=== PATIENT | female | born 1960 | race Caucasian/White ===

== ENCOUNTER → 2016-10-21 | Outpatient (CLI) | payer BC ==
--- NOTE | 2016-10-22 08:27 | MM ---
Reason for exam: screening (asymptomatic). Last mammogram was performed 3 years and 11 months ago. History: Patient is postmenopausal. Benign excisional biopsy of the left breast, March 29, 2002. Took estrogen for 6 years 6 months beginning at age 38. Physical Findings: A clinical breast exam by your physician is recommended on an annual basis and results should be correlated with mammographic findings. MG Screening Mammo w CAD Bilateral CC and MLO view(s) were taken. Prior study comparison: November 13, 2012, bilateral digital screening mammo w/CAD. August 16, 2011, bilateral digital screening mammo w/CAD. There are scattered fibroglandular densities. No significant changes when compared with prior studies. ASSESSMENT: Benign, BI-RAD 2 RECOMMENDATION: Routine screening mammogram of both breasts in 1 year.
== END | disposition home or self-care (01) ==
LOC: RADMAMWWP 07:26
PROVIDERS: ATTEND Internal Medicine
DX: Z12.31 Encounter for screening mammogram for malignant neoplasm of breast (principal)

== ENCOUNTER → 2019-12-17 | Outpatient (CLI) | payer BC ==
--- NOTE | 2019-12-17 11:59 | XR ---
EXAMINATION TYPE: XR chest 2V DATE OF EXAM: 12/17/2019 COMPARISON: Prior chest x-ray 02/23/2011 HISTORY: Tobacco use disorder TECHNIQUE: Frontal and lateral views of the chest are obtained. FINDINGS: There is no focal air space opacity, pleural effusion, or pneumothorax seen. The cardiac silhouette size is within normal limits. Prominent lung volumes consistent with underlying COPD. Th e aorta is dense. There is a mild spinal curvature present. Bone mineralization is reduced. The osseo us structures are intact. IMPRESSION: No acute cardiopulmonary process.
== END | disposition home or self-care (01) ==
LOC: RADXRMAIN 08:37
PROVIDERS: ATTEND Internal Medicine
DX: F17.200 Nicotine dependence, unspecified, uncomplicated (principal)
CPT/HCPCS: 71046

== ENCOUNTER → 2019-12-31 | Outpatient (CLI) | payer BC ==
--- NOTE | 2019-12-31 15:56 | US ---
EXAMINATION TYPE: US duplex aorta DATE OF EXAM: 12/31/2019 COMPARISON: NONE CLINICAL HISTORY: R09.89 Abdominal Bruit,R06.02,R05. EXAM MEASUREMENTS: Abdominal Aorta: Proximal: 2.2cm Mid: 2.2cm Distal: 1.4cm Bifurcation: Right: 0.4 Left: 0.5cm Heavily calcified vessel. IMPRESSION: 1. Atheromatous plaquing without aneurysmal dilatation or significant flow-limiting stenosis through the abdominal aorta.
== END | disposition home or self-care (01) ==
LOC: RADUSWWP 09:12
PROVIDERS: ATTEND Internal Medicine
DX: I70.0 Atherosclerosis of aorta (principal)
CPT/HCPCS: 93979

== ENCOUNTER 2020-03-02 10:05 | Day surgery (SDC) | payer BC ==
[2020-02-29 08:38] VITALS: BMI 17.6
[2020-03-02 10:48] VITALS: TEMP 98.3
[2020-03-02] MEDS: LACTATED RINGERS 1,000 ML IV SCH ×2 (10:56→11:23)
[2020-03-02] MEDS ORDERED: LIDOCAINE 1% (10MG/ML) FOR IV START INTRADERMA ONE (10:57)
[2020-03-02] MEDS ORDERED: PROPOFOL 10 MG/ML 20 ML VIAL IV ONE (11:24)
[2020-03-02] MEDS ORDERED: LIDOCAINE 1% INJ 10MG/ML (20 ML MDV) ONE (11:24)
--- NOTE | 2020-03-02 11:42 | P.PCN ---
Date of Procedure: 03/02/20 Procedure(s) Performed: BRIEF HISTORY: Patient is a 59-year-old pleasant white female scheduled for an elective colonoscopy as a part of screening for colon rectal neoplasia. PROCEDURE PERFORMED: Colonoscopy. PREOPERATIVE DIAGNOSIS: Screening for colon cancer. IV sedation per Anesthesia. PROCEDURE: After informed consent was obtained, the patient, was brought into the endoscopy unit. IV sedation was administered by Anesthesia under continuous monitoring. Digital rectal examination was normal. Initially the Olympus CF-160 flexible video colonoscope was then inserted in the rectum, gradually advanced into the cecum without any difficulty. Careful examination was performed as the scope was gradually being withdrawn. Ileocecal valve and the appendiceal orifice were visualized and appeared normal. Prep was excellent. Mucosa of the cecum, ascending colon, transverse colon, descending colon, sigmoid colon, and rectum appeared normal. At her sigmoid diverticulosis. Retroflexion was performed in the rectum and no lesions were seen. The patient tolerated the procedure well. IMPRESSION: Normal-appearing colon from rectum to cecum no evidence of colorectal neoplasia Scattered sigmoid diverticulosis. . RECOMMENDATIONS: Findings of this examination were discussed with the patient as well as her family. She was advised to have a repeat prescription colonoscopy in 10 years.
[2020-03-02 12:02] VITALS: BP 134/85; PULSE 98; RESP 16
== END 2020-03-02 12:30 | disposition home or self-care (01) ==
LOC: ORWHC2ENDO 10:05
PROVIDERS: ATTEND Internal Medicine Gastroenterology
DX: Z12.11 Encounter for screening for malignant neoplasm of colon (principal); K57.30 Diverticulosis of large intestine without perforation or abscess without bleeding; J44.9 Chronic obstructive pulmonary disease, unspecified; F17.200 Nicotine dependence, unspecified, uncomplicated; Z87.442 Personal history of urinary calculi; Z79.899 Other long term (current) drug therapy; Z88.1 Allergy status to other antibiotic agents; Z88.0 Allergy status to penicillin; Z88.2 Allergy status to sulfonamides
CPT/HCPCS: J2001; J2704; G0121

== ENCOUNTER → 2020-12-27 | Outpatient (CLI) | payer BC ==
--- NOTE | 2020-12-27 16:33 | XR ---
Right ankle HISTORY: Pain 3 views of the right ankle Bone mineralization is reduced. Joint spaces and alignment are maintained. Mild soft tissue swelling noted. No fracture or dislocation. IMPRESSION: Osteopenia, soft tissue swelling
== END | disposition home or self-care (01) ==
LOC: RADXRMAIN 12:49
PROVIDERS: ATTEND Internal Medicine
DX: M79.89 Other specified soft tissue disorders (principal)

== ENCOUNTER → 2021-01-17 | Outpatient (CLI) | payer BC ==
--- NOTE | 2021-01-17 17:20 | CTL ---
EXAMINATION TYPE: CT Low Dose Lung DATE OF EXAM ORDERED: 01/17/2021 HISTORY: Personal history tobacco use, Z 87.891. Lung cancer screening CT DLP: 46.[address] CTDI: 1.3 mGy Automated exposure control for dose reduction was used. SCREENING VISIT: 1 COMPARISON: None TECHNIQUE: Low dose computed tomography scan was performed through the chest at 1 mm thick sections a nd reconstructed images in multiple planes at 1 mm and [address] DIAGNOSTIC QUALITY: Satisfactory FINDINGS: LUNG NODULES: None. LUNGS: COPD: Severity: None there is moderate to severe centrilobular emphysema especially in the upper lobe s. Fibrosis: Severity: None Lymph nodes: Other findings: RIGHT PLEURAL SPACE: Effusion: None Calcification: None Thickening: None Pneumothorax: None LEFT PLEURAL SPACE: Effusion: None Calcification: None Thickening: None Pneumothorax: None HEART: Heart Size: Normal Coronary Calcification: Moderate Pericardial Effusion: Normal OTHER FINDINGS: Upper abdomen: Unremarkable Bony thorax: There is thoracic spondylosis Supraclavicular region: Within normal limits Other: Within the tracheal there is some luminal irregularity which may be related to secretions but is indeterminate, axial image 108 for example, proximal right mainstem bronchus axial image 116. Ther e is bronchial wall thickening. IMPRESSION: Negative CT LUNG RAD AND CT CHEST RECOMMENDATION: Lung-Rad 1 Negative: Continue annual screening with LDCT in 12 months. S Modifier (other clinically significant findings):
== END | disposition home or self-care (01) ==
LOC: RADCTMAIN 14:10
PROVIDERS: ATTEND Internal Medicine
DX: Z12.2 Encounter for screening for malignant neoplasm of respiratory organs (principal); Z87.891 Personal history of nicotine dependence
CPT/HCPCS: 71271

== ENCOUNTER → 2021-02-01 | Outpatient (CLI) | payer BC ==
--- NOTE | 2021-02-01 19:29 | BD ---
EXAMINATION TYPE: Axial Bone Density DATE OF EXAM: 02/01/2021 COMPARISON: NONE CLINICAL HISTORY: Postmenopausal screening Height: 63 Weight: 115.3 FRAX RISK QUESTIONS: Alcohol (3 or more units per day): no Family History (Parent hip fracture): no Glucocorticoids (More than 3mos): no (Ex: prednisone, prednisolone, methylprednisolone, dexamethasone, and hydrocortisone). History of Fracture in Adulthood: yes Secondary Osteoporosis: 1. Type 1 Diabetes: no 2. Hyperthyroidism: no 3. Menopause before 45: yes 4. Malnutrition: no 5. Chronic liver disease: no Rheumatoid Arthritis: no Current Tobacco Use: yes RISK FACTORS HISTORY OF: Surgery to Spine/Hip(right/left)/Wrist (right/left): no Family History of Osteoporosis: yes Active: yes Diet low in dairy products/other sources of calcium: yes Postmenopausal woman: yes Lost more than 2 inches in height since high school: no MEDICATIONS: Wellbutrin, singular Additional History: EXAM MEASUREMENTS: Bone mineral densitometry was performed using the [employer] System. Bone mineral density as measured about the Lumbar spine is: ----- L1-L4(G/cm2): 0.750 T Score Values are as follows: ----- L2: -4.1 ----- L3: -3.7 ----- L4: -3.3 ----- L1-L4: -3.6 Bone mineral density : baseline Bone mineral density about the R hip (g/cm2): 0.665 Bone mineral density about the L hip (g/cm2): 0.648 T Score values are as follows: -----R Neck: -2.7 -----L Neck: -2.8 -----R Total: -3.7 -----L Total: -3.5 Bone mineral density : baseline IMPRESSION: Osteoporosis (T Score less than -2.5). There is increased fracture risk and therapy is usually indicated based on age. Re-Screen 1-2 years. NOTE: T-SCORE=SD OF THE YOUNG ADULT MEAN.
== END | disposition home or self-care (01) ==
LOC: RADBDWWP 14:27
PROVIDERS: ATTEND Internal Medicine
DX: M81.0 Age-related osteoporosis without current pathological fracture (principal); Z78.0 Asymptomatic menopausal state
CPT/HCPCS: 77080

== ENCOUNTER → 2021-04-21 | Outpatient (CLI) | payer BC ==
--- NOTE | 2021-04-21 14:36 | MR ---
EXAMINATION TYPE: MR ankle RT wo/w con DATE OF EXAM: 04/21/2021 COMPARISON: None HISTORY: Right ankle pain, swelling, no specific trauma CONTRAST: Standard multiplanar, multisequence MRI departmental protocol images were obtained without contrast a nd with 5.5 mL intravenous Gadavist gadolinium contrast. There is some patchy increased signal on the T2 images in the anterior talus. There is similar mild c hange in the anterior calcaneus. There is minimal edema in the proximal lateral cuboid bone. No fract ure line seen. There is mild edema also in the posterior lateral superior aspect of the calcaneus. The ankle mortise is anatomic. The collateral ligaments are intact. Achilles tendon is intact. Medial and lateral flexor tendons of the ankle appear intact. There is no evidence of soft tissue mass. IMPRESSION: No fracture seen. Multiple areas of bone edema and the hindfoot consistent with multiple bone bruises . This is more noticeable in the anterior talus. No evidence of tendon or ligament tear.
== END | disposition home or self-care (01) ==
LOC: RADMRIMAIN 09:48
PROVIDERS: ATTEND Internal Medicine
DX: M89.8X7 Other specified disorders of bone, ankle and foot (principal)
CPT/HCPCS: 73723; A9585

== ENCOUNTER → 2021-05-01 | Outpatient (CLI) | payer BC ==
--- NOTE | 2021-05-01 15:21 | MM ---
Reason for exam: screening (asymptomatic). Last mammogram was performed 4 years and 6 months ago. History: Patient is postmenopausal. Benign excisional biopsy of the left breast, March 29, 2002. Took estrogen for 6 years 6 months beginning at age 38. Physical Findings: A clinical breast exam by your physician is recommended on an annual basis and results should be correlated with mammographic findings. MG Screening Mammo w CAD Bilateral CC and MLO view(s) were taken. Prior study comparison: October 21, 2016, bilateral MG screening mammo w CAD. November 13, 2012, bilateral digital screening mammo w/CAD. August 16, 2011, bilateral digital screening mammo w/CAD. There are scattered fibroglandular densities. Finding: There is a 7 mm obscured mass located 3 cm from the nipple in the anterior, central position of the right breast. New finding and more defined since November 13, 2012 and August 16, 2011. ASSESSMENT: Incomplete: need additional imaging evaluation, BI-RAD 0 RECOMMENDATION: Special view mammogram of the right breast. If lesion persists on supplemental views, image directed ultrasound is recommended. [facility] will attempt to contact patient to return for supplemental views and ultrasound if indicated.
== END | disposition home or self-care (01) ==
LOC: RADMAMWWP 07:38
PROVIDERS: ATTEND Internal Medicine
DX: Z12.31 Encounter for screening mammogram for malignant neoplasm of breast (principal); Z78.0 Asymptomatic menopausal state
CPT/HCPCS: 77067

== ENCOUNTER → 2021-05-03 | Outpatient (CLI) | payer BC ==
--- NOTE | 2021-05-03 11:14 | MM ---
Reason for exam: additional evaluation requested from abnormal screening. Last mammogram was performed less than 1 month ago. History: Patient is postmenopausal. Benign excisional biopsy of the left breast, March 29, 2002. Took estrogen for 6 years 6 months beginning at age 38. Physical Findings: A clinical breast exam by your physician is recommended on an annual basis and results should be correlated with mammographic findings. MG Work Up Mamm w CAD RT CC and MLO view(s) were taken of the right breast. Prior study comparison: May 01, 2021, bilateral MG screening mammo w CAD. There are scattered fibroglandular densities. Finding: There is an intermediate concern, suspicious 7 mm equal density (isodense), spiculated irregular mass located 3 cm from the nipple in the upper outer quadrant, middle position of the right breast. ASSESSMENT: Incomplete: need additional imaging evaluation, BI-RAD 0 RECOMMENDATION: Ultrasound of the right breast.
--- NOTE | 2021-05-03 11:21 | USB ---
Reason for exam: additional evaluation requested from abnormal screening. History: Patient is postmenopausal. Benign excisional biopsy of the left breast, March 29, 2002. Took estrogen for 6 years 6 months beginning at age 38. Physical Findings: A clinical breast exam by your physician is recommended on an annual basis and results should be correlated with mammographic findings. US Breast Workup Limited RT Right limited breast ultrasound including focal area of concern, retroareolar and axilla demonstrates a 0.7 x 0.5 x 0.5cm hypoechoic, vascular lesion at 10 o'clock, 3cm from nipple and a 1.2cm lymph node at the axilla. ASSESSMENT: Suspicious, BI-RAD 4 RECOMMENDATION: Stereotactic core biopsy of the right breast. Called Dr. Simon's office with mammographic findings and has scheduled an appointment for the patient for 06/04/21 at 11:[address] Rain. Biopsy scheduled for 05/28/21 at 9:30. PRELIMINARY REPORT CALLED AND FAXED TO DR. RAIN ON 05/03/21.
== END | disposition home or self-care (01) ==
LOC: RADMAMWWP 07:17
PROVIDERS: ATTEND Internal Medicine
DX: R92.8 Other abnormal and inconclusive findings on diagnostic imaging of breast (principal); Z78.0 Asymptomatic menopausal state
CPT/HCPCS: 77065

== ENCOUNTER → 2021-05-28 | Day surgery (SDC) | payer BC ==
[2021-05-28 10:06] VITALS: RESP 16; TEMP 98.1
[2021-05-28 11:36] VITALS: BP 151/63; PULSE 84
--- NOTE | 2021-05-28 15:43 | MM ---
Stereotactic Mammotome core biopsy right breast. HISTORY: Right breast density The density in question within the right breast were targeted by the undersigned. Procedure was perf ormed by the undersigned. Informed consent was obtained and all of the patients questions were answer ed. The standard sterile technique was utilized and appropriate local anesthesia was obtained with 1 % lidocaine. Mammotome probe was advanced and multiple core samples were obtained and sent to sherrie galeano for interpretation. Microclip marker was deployed at the site of biopsy. Post procedural mammog lalo demonstrates appropriate deployment of radiopaque clip marker. The patient tolerated the procedu re well and left the department in stable condition. Pathology results are pending. IMPRESSION: Successful stereotactic core biopsy right breast with pathology results pending.
== END ==
LOC: RADMAMWWP 09:44
PROVIDERS: ATTEND Student in an Organized Health Care Education/Training Program
DX: N60.81 Other benign mammary dysplasias of right breast (principal); N64.89 Other specified disorders of breast
CPT/HCPCS: 19081; 88305; 88342; 88341; A4648; J2001

== ENCOUNTER → 2021-12-20 | Outpatient (CLI) | payer BC ==
--- NOTE | 2021-12-20 12:56 | MM ---
Reason for Exam: Follow-up at short interval from prior study. Last screening mammogram was performed 8 month(s) ago. Patient History: Menarche at age 10. First Full-Term at age 21. Left ovary removed at age 38. Right ovary removed at age 38. Hysterectomy at age 38. Postmenopausal. Estrogen for 6 years, 6 months, from age 38 until age 44. 05/28/2021, High risk Core Biopsy on the right side. 03/29/2002, Benign Excisional Biopsy on the left side. Risk Values: Nikki 5 year model risk: 2.3%. NCI Lifetime model risk: 10.0%. Prior Study Comparison: 10/21/2016 Bilateral Screening Mammogram, [facility]. 05/01/2021 Bilateral Screening Mammogram, [facility]. 05/03/2021 Right Diagnostic Mammogram, [facility]. Tissue Density: Right: There are scattered fibroglandular densities. Findings: Analyzed By CAD. No discrete spiculated or lobular masses are evident. The surgical core marker has been removed. Scar marker is utilized on the right breast. Overall Assessment: Benign, BI-RAD 2 Management: Screening Mammogram of both breasts in 6 months. A clinical breast exam by your physician is recommended on an annual basis and results should be correlated with mammographic findings. This exam should not preclude additional follow-up of suspicious palpable abnormalities. Results were given to the patient verbally at the time of exam. Electronically signed and approved by: Robin Olmedo D.O. Radiologis
== END ==
LOC: RADMAMWWP 12:23
PROVIDERS: ATTEND Internal Medicine
DX: R92.8 Other abnormal and inconclusive findings on diagnostic imaging of breast (principal)
CPT/HCPCS: 77061; 77065

== ENCOUNTER → 2022-01-22 | Outpatient (CLI) | payer BC ==
--- NOTE | 2022-01-22 12:24 | CTL ---
EXAMINATION TYPE: CT Low Dose Lung DATE OF EXAM ORDERED: 01/22/2022 HISTORY: . Lung cancer screening CT DLP: 41.[address] CTDI: 1.10 mGy Automated exposure control for dose reduction was used. SCREENING VISIT: COMPARISON: TECHNIQUE: Low dose computed tomography scan was performed through the chest at 1 mm thick sections a nd reconstructed images in multiple planes at 1 mm and [address] DIAGNOSTIC QUALITY: Satisfactory FINDINGS: A pleural-based apical thickening with calcification on the left. There is moderate emphysema in a pa ttern suggestive of centrilobular emphysema. There is a 2 mm nodule on axial image 38 right lung apex and subsegmental changes are seen bilaterall y most typical of scar or atelectasis. No pleural effusion or pneumothorax. No focal pneumonia. Atherosclerotic changes of the aorta with no evidence of aneurysm. Heart size is normal with dense co ronary artery calcification. There is multilevel hypertrophic and degenerative changes spine. IMPRESSION: 1. Diffuse emphysematous changes with a 2 mm benign-appearing right apical lung nodule. 2. Coronary artery calcification. CT LUNG RAD AND CT CHEST RECOMMENDATION: Lung-Rad 2 Benign Appearance or Behavior: Continue annual sc reening with LDCT in 12 months. S Modifier (other clinically significant findings): S
== END | disposition home or self-care (01) ==
LOC: RADCTMAIN 11:17
PROVIDERS: ATTEND Internal Medicine
DX: Z12.2 Encounter for screening for malignant neoplasm of respiratory organs (principal); J43.9 Emphysema, unspecified; R91.1 Solitary pulmonary nodule; I25.10 Atherosclerotic heart disease of native coronary artery without angina pectoris; Z87.891 Personal history of nicotine dependence
CPT/HCPCS: 71271

== ENCOUNTER → 2022-05-01 | Outpatient (CLI) | payer BC ==
--- NOTE | 2022-05-03 07:44 | US ---
EXAMINATION TYPE: US arterial LE multi level DATE OF EXAM: 05/01/2022 12:54 PM CLINICAL HISTORY: I73.9 PAD. Intermittent pain bilateral legs. cold feet. discoloration tips of toes, blueish, purple History of: Smoker: yes Hypertension: no Diabetic: no Hyperlipidemia: yes TIA/CVA: no Previous Vascular Surgery: no CAD: MA: no Vascular Ulcers: no Claudication: no Gangrene: no Doppler Waveforms: Right: Biphasic Left: Biphasic Pulse Volume Recording: Pressure Gradients: Right Brachial Pressure: 140 Left Brachial Pressure: 146 Ankle-Brachial Indices: Right: 0.97 Left: 1.08 Toe Brachial Indices: Right: 0.48 Left: 0.71 IMPRESSION: Diminished right sided TBI consistent with at least mild peripheral arterial disease in the left foot. Further workup and follow-up advised.
== END | disposition home or self-care (01) ==
LOC: RADUSWWP 12:03
PROVIDERS: ATTEND Internal Medicine
DX: I73.9 Peripheral vascular disease, unspecified (principal); E78.5 Hyperlipidemia, unspecified; I25.10 Atherosclerotic heart disease of native coronary artery without angina pectoris; Z87.891 Personal history of nicotine dependence
CPT/HCPCS: 93923

== ENCOUNTER → 2022-09-30 | Outpatient (CLI) | payer BC ==
--- NOTE | 2022-09-30 19:27 | US ---
EXAMINATION TYPE: US carotid duplex BILAT DATE OF EXAM: 09/30/2022 COMPARISON: NONE CLINICAL INDICATION: Female, 62 years old with history of I65.23 CAROTID STENOSIS; Carotid stenosis. Hx smoker, hyperlipidemia. TECHNIQUE: Carotid duplex ultrasound examination. Indirect Doppler criteria was utilized. FINDINGS: EXAM MEASUREMENTS: RIGHT: Peak Systolic Velocity (PSV) cm/sec ----- Right CCA: 75.6 ----- Right ICA: 83.4 ----- Right ECA: 75.4 ICA/CCA ratio: 1.1 RIGHT: End Diastole cm/sec ----- Right CCA: 26.7 ----- Right ICA: 30.2 ----- Right ECA: 25.9 LEFT: Peak Systolic Velocity (PSV) cm/sec ----- Left CCA: 109.5 ----- Left ICA: 97.4 ----- Left ECA: 101.8 ICA/CCA ratio: 0.9 LEFT: End Diastole cm/sec ----- Left CCA: 36.9 ----- Left ICA: 39.1 ----- Left ECA: 16.0 VERTEBRALS (direction of flow): Right Vertebral: Antegrade Left Vertebral: Antegrade Rhythm: Arrhythmia FRUIT SPRAYER NOTES: No elevated velocities at this time. Intimal thickening seen bilaterally. Plaque seen within bilateral bulbs. *Incidental finding: Heterogenous mixed nodule seen within left thyroid lobe at mid: 1.9 x 1.6 x 1.0 cm. IMPRESSION: 1. Less than 50% stenosis of the bilateral carotid bifurcations. 2. Heterogenous left thyroid nodule. Dedicated thyroid ultrasound could further complete evaluation with thyroid gland. Criteria for Assigning % of Stenosis / Diameter reduction (Estimation based on the indirect measurements of the internal carotid artery velocities (ICA PSV). 1. Normal (no stenosis)=ICA PSV < 125 cm/s: ratio < 2.0: ICA EDV<40 cm/s. 2. Less than 50% stenosis=ICA PSV < 125 cm/s: ratio < 2.0: ICA EDV<40 cm/s. 3. 50 to 69% stenosis=ICA PSV of 125 to 230 cm/s: ration 2.0 ? 4.0: ICA EDV 40-100 cm/s. 4. Greater than 70% stenosis to near occlusion= ICA PSV > 230 cm/s: ratio > 4.0: ICA EDV > 100 cm/s. 5. Near occlusion= ICA PSV velocities may be low or undetectable: variable ratio and ICA EDV. 6. Total occlusion=unable to detect flow.
--- NOTE | 2022-09-30 20:22 | CT ---
EXAMINATION TYPE: CT brain wo con DATE OF EXAM: 09/30/2022 COMPARISON: None INDICATION: memory loss DLP: 995.5 mGycm, Automated exposure control for dose reduction was used. CONTRAST: None CT of the brain is performed utilizing 3 mm thick sections through the posterior fossa and 3 mm thick sections through the remaining calvarium. Study is performed within 24 hours of arrival to the hosp ital. No abnormal hyperdensity is present to suggest an acute intracranial hemorrhage. No mass lesion is evident. No acute infarcts are evident. There is mild periventricular white matter hypodensity, likely on the basis of chronic white matter ischemic changes. Ventricles and sulci are appropriate for the patient age. Paranasal sinuses and mastoid air cells within the [id number] are clear. Right septal deviation is noted. IMPRESSIONS: 1. Chronic appearing periventricular white matter ischemic type changes. 2. No acute intracranial process. Follow-up MRI can be performed as clinically indicated
--- NOTE | 2022-10-01 11:54 | CA ---
Transthoracic Echo Report Name: Janet Rodriguez Age: 62 Gender: F : 1960 Exam Date: 09/30/2022 15:51 Exam Location: [facility] Ht (in): 65 Wt (lb): 107 Ordering Physician: Juan Simon MD Attending/Referring Phys: Procedure Manager Marty Salamanca Procedure CPT: Indications: R41.3 OTHER AMNESIA Cardiac Hx: Technical Quality: Fair Contrast 1: Total Dose (mL): Contrast 2: Total Dose (mL): MEASUREMENTS (Male / Female) Normal Values 2D ECHO LV Diastolic Diameter PLAX 3.4 cm 4.2 - 5.9 / 3.9 - 5.3 cm LV Systolic Diameter PLAX 2.2 cm IVS Diastolic Thickness 1.0 cm 0.6 - 1.0 / 0.6 - 0.9 cm LVPW Diastolic Thickness 1.0 cm 0.6 - 1.0 / 0.6 - 0.9 cm LV Relative Wall Thickness 0.6 RV Internal Dim ED PLAX 2.3 cm LVOT Diameter 2.0 cm Aortic Root Diameter 2.5 cm LA Systolic Diameter LX 1.5 cm 3.0 - 4.0 / 2.7 - 3.8 cm LV Diastolic Volume MOD BP 44.1 cm??? 67 - 155 / 56 - 104 cm??? LV Systolic Volume MOD BP 18.5 cm??? 22 - 58 / 19 - 49 cm??? LV Ejection Fraction MOD BP 58.0 % >= 55 % LV Cardiac Index MOD BP 1310.1 cm???/min???m??? LV Diastolic Volume MOD 4C 42.8 cm??? LV Systolic Volume MOD 4C 15.1 cm??? LV Ejection Fraction MOD 4C 64.6 % LV Cardiac Index MOD 4C 1416.2 cm???/min???m??? LV Diastolic Length 4C 6.0 cm LV Systolic Length 4C 4.6 cm LV Diastolic Volume MOD 2C 44.7 cm??? LV Systolic Volume MOD 2C 21.0 cm??? LV Ejection Fraction MOD 2C 53.1 % LV Cardiac Index MOD 2C 1217.1 cm???/min???m??? LV Diastolic Length 2C 5.8 cm LV Systolic Length 2C 5.1 cm LA Volume 14.6 cm??? 18 - 58 / 22 - 52 cm??? DOPPLER AV Peak Velocity 115.3 cm/s AV Peak Gradient 5.3 mmHg LVOT Peak Velocity 76.2 cm/s LVOT Peak Gradient 2.3 mmHg AV Area Cont Eq pk 2.0 cm??? MV Peak Velocity 78.0 cm/s MV Peak Gradient 2.4 mmHg MV Mean Velocity 44.5 cm/s MV Mean Gradient 0.9 mmHg MV Velocity Time Integral 30.8 cm Mitral E Point Velocity 68.0 cm/s Mitral A Point Velocity 73.4 cm/s Mitral E to A Ratio 0.9 MV Deceleration Time 275.6 ms MV E' Velocity 7.3 cm/s Mitral E to MV E' Ratio 9.4 TR Peak Velocity 134.4 cm/s TR Peak Gradient 7.2 mmHg Right Ventricular Systolic Press 12.2 mmHg FINDINGS Left Ventricle Normal LV size and wall thickness. Left ventricular ejection fraction is estimated at 50-55 %. Right Ventricle Normal right ventricular size. Right Atrium Normal right atrial size. Left Atrium Normal left atrial size. Mitral Valve Structurally normal mitral valve. No mitral regurgitation. Aortic Valve Trileaflet aortic valve. No aortic valve stenosis or regurgitation. Tricuspid Valve Structurally normal tricuspid valve. Trace TR. Pulmonic Valve Structurally normal pulmonic valve. No pulmonic regurgitation. Pericardium Normal pericardium. Aorta Normal size aortic root. CONCLUSIONS Normal LV systolic function Prominent posterior pericardial stripe Previewed by: Dr. Dakota Zamarripa MD (Electronically Signed) Final Date: 01 October 2022 11:53
== END | disposition home or self-care (01) ==
LOC: RADCTMAIN 15:37
PROVIDERS: ATTEND Internal Medicine
DX: I65.23 Occlusion and stenosis of bilateral carotid arteries (principal); R41.3 Other amnesia; I34.0 Nonrheumatic mitral (valve) insufficiency; I67.82 Cerebral ischemia
CPT/HCPCS: 70450; 93306; 93880

== ENCOUNTER → 2023-01-23 | Outpatient (CLI) | payer BC ==
--- NOTE | 2023-01-23 08:58 | CTL ---
EXAMINATION TYPE: CT Low Dose Lung DATE OF EXAM ORDERED: 01/23/2023 HISTORY: . Lung cancer screening CT DLP: [address] CTDI: 1.64 mGy Automated exposure control for dose reduction was used. SCREENING VISIT: COMPARISON: 01/22/2022 TECHNIQUE: Low dose computed tomography scan was performed through the chest at 1 mm thick sections a nd reconstructed images in multiple planes at 1 mm and [address] DIAGNOSTIC QUALITY: Satisfactory FINDINGS: There is a new solid-appearing mass within the left lower lobe superior segment not seen on prior exa m measuring 2 x 1.5 cm. Diffuse emphysematous changes are seen. There is an area of subsegmental consolidation seen in the anterior segment of the left upper lobe wh ich could be postinflammatory or sequela of prior infection. 2 mm apical lung nodule stable and has a benign appearance. There is bilateral biapical pleural thickening and nodularity. Pleural-based thic kening noted right upper lobe and bilateral lung apex. Atherosclerotic change aorta. There is dense c oronary artery calcification. Heart size is normal and there is a trace of pericardial fluid. Small h iatal hernia. The calcification within the liver are likely related to granuloma. Noncontrast technique limits assessment for adenopathy. Grossly no pathologic adenopathy identified. Diffuse osteopenia with multilevel degenerative disc disease. IMPRESSION: 1. There is interval development of a new 2 x 1.5 cm left lower lobe superior segment mass. Recommend PET CT scan. 2. Diffuse emphysematous changes 3. Tiny micronodule right upper lobe previously noted stable. 4. Subsegmental consolidation anterior segment left upper lobe likely sequela of prior infection or i nflammatory changes. 5. Dense coronary artery calcification. CT LUNG RAD AND CT CHEST RECOMMENDATION: Lung-Rad 4B or 4X Very Suspicious: Follow-up Chest CT with o r without contrast or PET/CT and/or tissue sampling. PET/CT may be used when there is a > 8 mm solid component. A Morrill level critical message alert has been initiated for Juan Simon MD via the [employer] Critical Results System on 01/23/2023 8:53 AM. This message alert has been sent to Juan Simon MD vi a the preferences provided by the clinician for the receipt of Radiology Critical Findings. Message I D [id number].
== END | disposition home or self-care (01) ==
LOC: RADCTMAIN 07:58
PROVIDERS: ATTEND Internal Medicine
DX: Z12.2 Encounter for screening for malignant neoplasm of respiratory organs (principal); J43.9 Emphysema, unspecified; I25.10 Atherosclerotic heart disease of native coronary artery without angina pectoris; R91.8 Other nonspecific abnormal finding of lung field; F17.210 Nicotine dependence, cigarettes, uncomplicated
CPT/HCPCS: 71271

== ENCOUNTER → 2023-01-31 | Outpatient (CLI) | payer BC ==
--- NOTE | 2023-02-01 08:36 | PE ---
EXAMINATION TYPE: PET CT fusion skull to thigh DATE OF EXAM: 01/31/2023 CLINICAL INDICATION:Female, 62 years old with history of R91.8 Lung mass; TECHNIQUE: Following the intravenous administration of 12.65 mCi of F-18 FDG, whole body images are performed from the skull base to the midthigh. Images are reviewed on the computer in the coronal, axial, and sagittal planes. Reconstructed rotating images are created on independent workstation and reviewed on the computer. A non-contrast CT is performed in conjunction with the PET scan. Glucose level 92 mg/dL CT DLP: 156 mGycm, Automated exposure control for dose reduction was used. COMPARISON: CT 01/23/2023, PET/CT None, FINDINGS: Mediastinal SUV mean is 1.74. Hepatic parenchyma SUV mean is 2.2. SKULL BASE AND NECK: No suspicious radiotracer activity. CHEST, MEDIASTINUM, AND HILAR REGION: Abnormal FDG activity, examples include: * Subcarinal lymph node max SUV 7.9 measuring 8 mm in short axis. * Anterior left upper lung airspace opacities max SUV 4.6. * Left lower lung mass max SUV 10.6 measuring 25 x 18 mm. * Left perihilar lymph node max SUV 11.3. * Low levels FDG activity within a right low paratracheal lymph node and left low paratracheal lymph node also present max SUV 3.2 and 3.5 respectively. ABDOMEN AND PELVIS: No suspicious radiotracer activity. MUSCULOSKELETAL STRUCTURES: No suspicious radiotracer activity. OTHER CT: Atherosclerosis of the coronary arteries and arterial vasculature. Nonobstructing right 8 m m calculus. Scattered IMPRESSION: 1. 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 2. Patchy uptake in the anterior aspect of the left lung could represent infectious process. Attenti on on follow-up imaging.
== END | disposition home or self-care (01) ==
LOC: RADPETMAIN 09:50
PROVIDERS: ATTEND Internal Medicine
DX: C78.1 Secondary malignant neoplasm of mediastinum (principal); C34.32 Malignant neoplasm of lower lobe, left bronchus or lung; R91.8 Other nonspecific abnormal finding of lung field
CPT/HCPCS: 78815; A9552

== ENCOUNTER 2023-02-20 12:32 | Day surgery (SDC) | payer BC ==
[2023-02-12 14:31] VITALS: BMI 17.6
[~2023-02-20 12:32] MED LIST: DEXAMETHASONE SOD PHOSPHATE 4 MG/ML 1 ML VIAL IV ONE; HYDROmorphone 0.5 MG/0.5 ML SYRINGE IVP PRN; LACTATED RINGERS 1,000 ML IV SCH; LIDOCAINE 1% (10MG/ML) FOR IV START INTRADERMA PRN; MIDAZOLAM 2 MG/2 ML VIAL IV PRN; ONDANSETRON 4 MG/2 ML VIAL IVP ONE
[2023-02-20] MEDS ORDERED: fentaNYL (PF) 50 MCG/ML 2 ML AMP ONE (14:34)
[2023-02-20] MEDS ORDERED: SUCCINYLCHOLINE CHLORIDE 200 MG/10 ML VIAL IV ONE (14:34)
[2023-02-20] MEDS ORDERED: SUGAMMADEX SODIUM 200 MG/2 ML SDV IV ONE (14:34)
[2023-02-20] MEDS ORDERED: GLYCOPYRROLATE 0.2 MG/ML 2 ML VIAL ONE (14:34)
[2023-02-20] MEDS ORDERED: NEOSTIGMINE 1 MG/ML 10 ML VIAL ONE (14:34)
[2023-02-20] MEDS ORDERED: ROCURONIUM 10 MG/ML (5 ML VIAL) IV ONE (14:34)
[2023-02-20] MEDS ORDERED: LIDOCAINE 1% INJ 10MG/ML (20 ML MDV) ONE (14:34)
[2023-02-20] MEDS ORDERED: MIDAZOLAM 2 MG/2 ML VIAL ONE (14:34)
[2023-02-20] MEDS ORDERED: PROPOFOL 10 MG/ML 20 ML VIAL IV ONE (14:34)
--- NOTE | 2023-02-20 15:53 | P.PCN ---
Date of Procedure: 02/20/23 Operative Findings: Date of Procedure: 02/20/23 Description of Procedure: Preoperative Diagnosis: Left lower lobe lung mass, 2.5 cm Right upper lobe inflammatory opacity Mediastinal lymphadenopathy involving the left hilum and subcarinal area. Postoperative Diagnosis: same Procedure(s) Performed: Flexible bronchoscopy Robotic-assisted bronchoscopy and addition to radial ultrasound evaluation of the left lower lobe mass and right upper lobe inflammatory opacity Robotic-assisted transbronchial needle aspirate, transbronchial biopsies of the left lower lobe mass in addition to a bronchioloalveolar lavage Robotic-assisted transbronchial biopsies of the right upper lobe inflammatory opacity in addition to a bronchioloalveolar lavage Endobronchial ultrasound Transbronchial needle aspirate of subcarinal station 7 and station 10 L lymph node, Ebus guided Anesthesia: FARIDAA Surgeon: Sabas Torres Estimated Blood Loss (ml): 0 Pathology: other Condition: stable Disposition: same day Operative Findings: A physical exam was performed. Informed consent was obtained from the patient after explaining all the risks (pneumothorax, life threatening bleeding, infection and adverse effects due to medications), benefits and alternatives to the procedure which the patient appeared to understand and so stated. The patient was connected to the monitoring devices. General anesthesia was induced and the patient was intubated by anesthesia. A final timeout was performed and the procedure confirmed by the attending staff bronchoscopist. The bronchoscope was inserted and the airway examined. The flexible bronchoscope was removed and the robotic bronchoscope was inserted. Registration was completed. I next guided the robotic bronchoscope using the navigation system into the lateral segment of the left lower lobe. Once in proper position, the bronchoscope was frozen. The radial EBUS probe was placed through the bronchoscope and confirmed abnormal u/s images vs normal lung. A needle was placed through the working channel and under fluoroscopic guidance, we sampled the area thought to have the mass twice. We then used a cloud biopsy pattern with ultrasound confirmation for 2 additional passes with the needle. U/S evaluation was then used to reconfirm location. Forceps were next introduced through working channel and extended the appropriate distance and 3 transbronchial biopsies were performed using fluoroscopic guidance. The u/s probe was then reinserted to confirm location. When confirmed this process was repeated for a total of 8-10 transbronchial biopsies. After reassessment with EBUS, a brush was placed through the extendable working channel for 1 pass with fluoroscopic guidance. U/S evaluation was then used to confirm location. 40ml of saline was then instilled into the area of the lesion. The robotic bronchoscope was removed and the airway inspected with a flexible bronchoscope and 10 ml of effluent from the BAL was collected. The aspirate was bloody and ultimately declotted and based on that, the sample was discarded. I next guided the robotic bronchoscope using the navigation system into the right upper lobe anterior segment . Once in proper position, the bronchoscope was frozen. The radial EBUS probe was placed through the bronchoscope and confirmed abnormal u/s images vs normal lung.he had ultrasound signal was not adequate. We then used a cloud biopsy of the right upper lobe inflammatory opacity was done. A total of 6 biopsies were taken. Following that, I performed endobronchial brushing and a bronchial lavage of the right upper lobe anterior segment. Subsequently, the catheter guide was removed and the patient was disconnected from the robot. Endobronchial ultrasound was inserted for mediastinal lymph nod es evaluation. A complete examination of the mediastinal lymph nodes revealed a 2 cm subcarinal lymph node and 1.5 cm left hilar lymph node.. Using a 22-gauge needle, transbronchial needle aspirate of the subcarinal lymph node was done and a total of 5 passes were taken and transbronchial needle aspirate of the left hilar lymph node was done with a total of 4 passes. The endobronchial ultrasoun d was removed and the procedure was terminated. Flex. bronchoscope was inserted and regular suctioning was done. At the completion of the procedure, no residual secretions or bloody material within the airway. The bronchoscope was removed. The patient was extubated. FINDINGS: 1.The airways appeared normal 2 Successful navigation, ultrasonographic identification, and biopsies of the left lower lobe mass 3.The the radial ultrasound view was eccentric/concentric 4. endobronchial ultrasound with transbronchial needle aspirate of subcarinal lymph node and station [address] is equal RECOMMENDATIONS: Await pathology and cytology results The referring physician will be alerted to the results when available. The patient was advised to follow up with the referring physician with the biopsy results Patient will be called with results.
[2023-02-20] MEDS ORDERED: ALBUTEROL NEBULIZED 2.5 MG/3 ML INHALATION ONE (16:36)
[2023-02-20 16:37] VITALS: TEMP 97
[2023-02-20] MEDS ORDERED: methylPREDNISolone SOD SUCCI 125 MG/2 ML VIAL IVP ONE (16:37)
--- NOTE | 2023-02-20 17:21 | XR ---
EXAMINATION TYPE: XR chest 1V DATE OF EXAM: 02/20/2023 COMPARISON: 12/17/2019 HISTORY: 62-year-old female postbronchoscopy TECHNIQUE: Single frontal view of the chest is obtained. FINDINGS: Heart normal size. The scarring arch calcifications. Bilateral nipple shadows. Some strand y mild patchy density at the left infrahilar region but otherwise no consolidation, pneumothorax, or pleural effusion. Hyperinflation. IMPRESSION: COPD. Some mild patchy left infrahilar density probably post bronchoscopy/biopsy changes . No pneumothorax or other acute process otherwise seen.
[2023-02-20 17:53] VITALS: RESP 18
--- NOTE | 2023-02-20 17:58 | CT ---
EXAMINATION TYPE: CT chest wo con CT DLP: 195.90 mGycm, Automated exposure control for dose reduction was used. DATE OF EXAM: 02/20/2023 12:59 PM COMPARISON: PET/CT dated 01/31/2023 CLINICAL INDICATION:Female, 62 years old with history of ION BRONCH; PHH, pre procedure ion bronch. TECHNIQUE: CT chest performed without contrast per ion bronch protocol. Multiple axial images were ob tained through the chest. Sagittal and coronal reformats were created for review. Contrast used: mL of (None if empty) Oral contrast used: (None if empty) FINDINGS: Examination limited by lack of IV contrast. LUNGS/ PLEURA: Severe pulmonary emphysema with an upper lobe predominance, centrilobular type. There is associated diffuse interstitial thickening/scarring. Biapical pleural/parenchyma scarring. Subsegm ental atelectatic changes are seen in the lingula. There is volume loss in the right middle lobe with patchy and linear opacities throughout most of this lobe as well as more consolidative opacities ant eriorly and inferiorly. In the anteromedial left upper lobe there are multiple tree-in-bud opacities suggesting infectious or inflammatory small airways process; these areas were warm on PET. There are a few tree-in-bud opacities in the left lung base as well. Large solid nodule in the left lower lobe image 191 series 6 measures 2.3 x 2.2 cm (was hot on PET). From this there is a fingerlike projection of soft tissue extending medially and superiorly to the le ft hilum where there is soft tissue density that is difficult to measure precisely especially without contrast but is judged to be about 14 mm in short axis (and this was hot on PET), compatible with hi lar otto metastasis. No other discrete measurable lung nodules or masses at this time. No pleural effusion, or pneumothora x. AIRWAY: There is a small amount of material seen layering in the distal trachea and mainstem bronchi posteriorly likely mucous secretions. Mild peribronchial thickening bilaterally can be seen with bron chitis, chronic or acute. Small amount of mucus plugging suggested in some of the left lower lobe bro nchi. One small bronchial branch leads directly to the left lower lobe nodule, and should be amenable to bronchoscopic access. LOWER NECK: No significant findings. MEDIASTINUM: Subcarinal adenopathy which was hot on PET seems to be larger now with a short axis salty uring 19.5 mm. There are multiple additional mediastinal nodes seen, including right precarinal with a short axis 7 mm, multiple nonenlarged AP window nodes with the largest having a short axis 7 mm. Co ntinuing superiorly, there are numerous subcentimeter nodes seen, which are more conspicuous in numbe r than size. These reach near the level of the thyroid. No distinct periclavicular nodes can be seen. HEART: Normal heart size. Moderate to severe coronary artery calcification and/or stents. Trace peric ardial fluid VASCULATURE: Moderate atherosclerotic calcifications of the aorta and branches. Ascending aorta is 2 .8 CM, descending is 2.3 CM. Aorta is considered within normal limits for size. Pulmonary trunk measures 1.8 CM. Pulmonary trunk is normal in size. Vessels otherwise not further ass essed without contrast. SOFT TISSUES/LYMPH NODES: Unremarkable chest wall soft tissues. No axillary adenopathy. UPPER ABDOMEN: Additional aortic calcifications. No mass of the visualized adrenals. MUSCULOSKELETAL: No acute osseous abnormalities. Generalized osteopenia. Mild degenerative disc galindo es throughout the visualized spine. IMPRESSION: 1. Severe pulmonary emphysema. 2. Large solid left lower lobe pulmonary nodule, compatible with malignancy. 3. Soft tissue extension from this nodule to the left hilum with left hilar metastatic adenopathy. 4. Apparent interval enlargement of subcarinal adenopathy, presumed metastatic. 5. Multiple additional prominent but not enlarged lymph nodes in the mediastinum, of uncertain metas tatic status but were not hot on the recent PET/CT. These will be reassessed on subsequent follow-up imaging. 6. Tree-in-bud opacities in the anterior left lung, likely related to infectious/inflammatory proces s. 7. Opacities in the right middle lobe with evidence of some volume loss, may represent atelectasis w ith possible superimposed infectious infiltrate.
[2023-02-20 18:18] VITALS: BP 115/75; PULSE 94
--- NOTE | 2023-02-20 20:14 | FL ---
EXAMINATION TYPE: FL bronchoscopy DATE OF EXAM: 02/20/2023 FLUOROSCOPY Fluoroscopy time of 1 minute 8 seconds was used during left bronchoscopy. 5 image/s document/s the p rocedure. 1.1787 mGycm2 DAP
== END 2023-02-20 18:17 | disposition home or self-care (01) ==
LOC: ORWHC2ENDO 12:32
PROVIDERS: ATTEND Internal Medicine Critical Care Medicine
DX: C34.32 Malignant neoplasm of lower lobe, left bronchus or lung (principal); Z88.0 Allergy status to penicillin; Z88.2 Allergy status to sulfonamides; Z88.3 Allergy status to other anti-infective agents; Z79.82 Long term (current) use of aspirin; Z79.899 Other long term (current) drug therapy; Z83.6 Family history of other diseases of the respiratory system; F17.200 Nicotine dependence, unspecified, uncomplicated; J44.9 Chronic obstructive pulmonary disease, unspecified; I10 Essential (primary) hypertension; E78.5 Hyperlipidemia, unspecified; F41.9 Anxiety disorder, unspecified
CPT/HCPCS: 88108; 88305; 88342; 88341; 71045; 71250; 31628; 31629; 31623; 31624; 31652; J2250; J0330; J1100; J2710; J2930; J2405; J2001; J3010; J2704; S2900

== ENCOUNTER → 2023-03-03 | Outpatient (CLI) | payer BC ==
--- NOTE | 2023-03-04 09:27 | MR ---
EXAMINATION TYPE: MR brain wo/w con DATE OF EXAM: 03/03/2023 4:31 PM CLINICAL INDICATION:Female, 62 years old with history of C34.92 NEOPLASM OF UNSP PART OF LEFT BRONCHU S; PHH, Lung cancer COMPARISON: None TECHNIQUE: Multi planar, multi sequence imaging was performed through the brain including: T1, T2, In version recovery, susceptibility weighted imaging and gradient echo imaging and Diffusion weighted im aging. The patient was then given intravenous contrast and multi planar, T1 fat-saturation images wer e obtained. IV Contrast: 4.5 cc Gadavist FINDINGS: The javier-white junctions, ventricular system, basal cisterns appear unremarkable. Diffusion-weighted imaging shows no evidence of restricted diffusion to suggest acute/subacute infarct. Intracranial ar terial flow voids are maintained. Midline structures show no abnormality. Scattered foci of high T2 s ignal intensity are seen within the periventricular white matter. The susceptibility weighted images do not reveal any evidence for micro-hemorrhage. After administration of gadolinium, no abnormal enha ncement is seen. The bone marrow signal is within normal limits. Paranasal sinuses and mastoid air cells: No significant paranasal sinus disease. Visualized orbits: Orbital contents are intact. IMPRESSION: 1. No evidence of intracranial mass, acute/subacute infarct, or abnormal enhancement. 2. Nonspecific white matter changes, likely related to small vessel ischemic disease.
== END | disposition home or self-care (01) ==
LOC: RADMRIMAIN 15:23
PROVIDERS: ATTEND Internal Medicine Hematology & Oncology
DX: C34.92 Malignant neoplasm of unspecified part of left bronchus or lung (principal)
CPT/HCPCS: 70553; A9585

== ENCOUNTER → 2023-05-01 | Outpatient (CLI) | payer BC ==
[2023-05-01 12:31] LABS: Amorphous Sediment,Urine Rare /hpf; Appearance,Urine Clear (Clear); Bilirubin,Urine Negative (Negative); Blood,Urine Moderate (Negative); Color,Urine Colorless; Glucose,Urine (UA) Negative (Negative); Ketones,Urine Negative (Negative); Leukocyte Esterase,Urine Trace (Negative); Nitrite,Urine Negative (Negative); PH, Urine 6.5 (5.0-8.0); Protein,Urine Negative (Negative); RBC,Urine 27 /hpf (0-5); Specific Gravity,Urine 1.014 (1.001-1.035); Urobilinogen,Urine <2.0 mg/dL (<2.0); WBC,Urine 13 /hpf (0-5)
== END | disposition home or self-care (01) ==
LOC: LABWHC1 09:44
PROVIDERS: ATTEND Radiology Radiation Oncology
DX: C34.32 Malignant neoplasm of lower lobe, left bronchus or lung (principal); C77.1 Secondary and unspecified malignant neoplasm of intrathoracic lymph nodes
CPT/HCPCS: 81001; 87086

== ENCOUNTER → 2023-05-30 | Outpatient (CLI) | payer BC ==
[2023-05-30 09:27] LABS: African American GFR (CKD) 79 (>60 ml/min/1.73 sqM); Blood Urea Nitrogen 39 mg/dL (7-17); Non-African American GFR(CKD) 69 (>60 ml/min/1.73 sqM)
--- NOTE | 2023-05-30 11:49 | CT ---
EXAMINATION TYPE: CT ChestAbdPelvis w con DATE OF EXAM: 05/30/2023 COMPARISON: 01/31/2023 and 01/22/2022 HISTORY: 63-year-old female C34.92, Hx lung ca, observe for mets TECHNIQUE: Contiguous axial scanning of the chest, abdomen, and pelvis performed with IV Contrast, patient injected with 100 mL of Isovue 300. Delayed images through the kidneys were obtained. Espinoza l/sagittal reconstructions performed. CT DLP: 782 mGycm Automated exposure control for dose reduction was used. FINDINGS: CHEST: The heart is normal size without pericardial effusion. Scattered three-vessel coronary calcifications are present. Aorta normal caliber with aberrant right subclavian artery taking a retroesophageal course. Nonspecific 8 mm hypodense left thyroid lobe nodule. There is some layering debris within the lower trachea and kirti and moderate bronchial wall thicken ing and some endoluminal opacification left lower lobe. Decreasing size of the previous nonenlarged subcarinal lymph node. Resolution of the previous left hi lar adenopathy and previous left lower lobe nodule. Background moderate to advanced upper lung emphysema. Biapical pleural parenchymal scarring. Anterior midlung tree-in-bud opacities on the left have resolved. Minimal groundglass nodularity in t he periphery of the left base is now present. ABDOMEN: No focal liver lesion or biliary ductal dilatation. Portal venous system is patent. Gallbladder, adrenal glands, spleen, left kidney within normal limits. 7 mm nonobstructive right parul l calculus. Moderate atherosclerotic calcifications throughout the abdominal aorta and iliac arteries. No dilated small bowel, free fluid, or free air. No mesenteric or retroperitoneal lymphadenopathy see n. There is moderate to large stool burden with oral contrast progressed to the ascending colon. Sigmoid diverticulosis. No pericolic inflammatory change. PELVIS: Bladder urine distended. Uterus surgically absent. Ovaries not clearly delineated due to crowded efraín l. No abnormal fluid collection in the pelvis or pelvic lymphadenopathy. BONES: Unchanged sclerotic focus left pubic body likely bone island. Mild degenerative change of the hips. T here is osteopenia. IMPRESSION: 1. PREVIOUS LEFT LOWER LOBE NODULE HAS RESOLVED HAS THE PREVIOUS LEFT HILAR ADENOPATHY. THERE IS M ODERATE BRONCHIAL WALL THICKENING AND SOME ENDOBRONCHIAL OPACIFICATION IN THE LEFT LOWER LOBE. FINDIN GS SUGGEST SATISFACTORY TREATMENT RESPONSE AND SOME POSSIBLE POSTTREATMENT INFLAMMATION/BRONCHITIS. 2. PREVIOUS TREE-IN-BUD ANTERIOR LEFT MIDLUNG HAS RESOLVED BUT WITH SOME SUBTLE NEW INFECTIOUS/INFLAM MATORY GROUNDGLASS INFILTRATE AT THE LEFT BASE. GIVEN LAYERING DEBRIS IN THE LOWER TRACHEA, CORRELATE TO EXCLUDE MILD ASPIRATION. 3. NONOBSTRUCTIVE 7 MM RIGHT RENAL STONE AND MODERATE TO LARGE STOOL BURDEN. SIGMOID DIVERTICULOSIS W ITHOUT ACUTE DIVERTICULITIS.
== END | disposition home or self-care (01) ==
LOC: RADCTMAIN 08:38
PROVIDERS: ATTEND Internal Medicine Hematology & Oncology
DX: C34.92 Malignant neoplasm of unspecified part of left bronchus or lung (principal); N20.0 Calculus of kidney; E78.5 Hyperlipidemia, unspecified; J43.8 Other emphysema; J44.9 Chronic obstructive pulmonary disease, unspecified
CPT/HCPCS: 82565; 84520; 71260; 74177; 36415; Q9967

== ENCOUNTER → 2023-06-06 | Outpatient (CLI) | payer BC ==
--- NOTE | 2023-06-09 12:57 | MR ---
EXAMINATION TYPE: MR brain wo/w con DATE OF EXAM: 06/06/2023 COMPARISON: Prior MRI brain March 03, 2023 HISTORY: Lung cancer TECHNIQUE: Multiplanar, multisequence images of the brain and brainstem is performed without and with IV contras t, utilizing 4 mL intravenous Gadavist . FINDINGS: Diffusion weighted images demonstrate no evidence of a recent infarct or other diffusion ab normality. The ventricular system and cisternal spaces are normal in size and appearance. The brain volume is age appropriate. There is redemonstration of multifocal and confluent areas of T2 hyperinte nsity seen throughout the white matter bilaterally. Lesions are nonspecific in appearance and distrib ution. Midline structures redemonstrates somewhat empty sella morphology. The craniocervical junction appea rs within normal limits. Post contrast images demonstrate no abnormal enhancement. The dural venous sinuses appear patent. The globes are intact bilaterally. There is new fluid in the bilateral maxillary sinuses and right greater than left ethmoid sinuses zac ng with the central frontal sinus with mucosal enhancement throughout the paranasal sinuses noted andrew aterally. IMPRESSION: 1. No new suspicious enhancing masses identified to suggest metastatic disease to the brain. 2. Moderate nonspecific white matter changes redemonstrated favor product of chronic small vessel isc hemic change. No significant change from prior. 3. There is new acute paranasal sinus disease present as detailed above. Correlate clinically.
== END | disposition home or self-care (01) ==
LOC: RADMRIMAIN 13:50
PROVIDERS: ATTEND Radiology Radiation Oncology
DX: C34.90 Malignant neoplasm of unspecified part of unspecified bronchus or lung (principal); I67.82 Cerebral ischemia
CPT/HCPCS: 70553; A9585

== ENCOUNTER → 2023-08-02 | Outpatient (CLI) | payer BC ==
--- NOTE | 2023-08-02 14:46 | MR ---
EXAMINATION TYPE: MR brain wo/w con DATE OF EXAM: 08/02/2023 2:40 PM COMPARISON: 06/06/2023 HISTORY: Post Cancer treatment f/u, dizziness, headaches, nausea CONTRAST: Patient received 4.5 mL intravenous Gadavist gadolinium contrast. Multiplanar and multispin-echo imaging of the brain was performed . Pre and post contrast enhanced i mages are obtained. The ventricles, basal cisterns and sulci overlying the cerebral convexities are mildly enlarged. There is evidence of mild to moderate periventricular white matter ischemic demyelination. Remote deep white matter insults are also noted. No acute edema is seen on diffusion weighted imaging. There is no evidence for midline shift or mass effect. Acute intracranial hemorrhage or extra-axial collection is not evident. No enhancing lesions are seen. The paranasal sinuses and mastoid air cells are well-aerated. IMPRESSION: Age-related atrophic and chronic small vessel ischemic change. No acute intracranial process at this time. No enhancing lesions are seen.
== END | disposition home or self-care (01) ==
LOC: RADMRIMAIN 13:39
PROVIDERS: ATTEND Internal Medicine Hematology & Oncology
DX: C34.32 Malignant neoplasm of lower lobe, left bronchus or lung (principal); C77.1 Secondary and unspecified malignant neoplasm of intrathoracic lymph nodes; I67.82 Cerebral ischemia
CPT/HCPCS: 70553; A9585

== ENCOUNTER → 2023-08-27 | Outpatient (CLI) | payer BC ==
--- NOTE | 2023-08-27 12:34 | CT ---
EXAMINATION TYPE: CT ChestAbdPelvis w con CT DLP: 411.2 mGycm, Automated exposure control for dose reduction was used. DATE OF EXAM: 08/27/2023 11:58 AM COMPARISON: CT chest abdomen and pelvis 05/30/2023, CT chest 05/22/2023, PET CT 01/31/2023. 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 Technique: Multiple axial images of the chest, abdomen, and pelvis were obtained following the intrav enous administration of 100 mL Isovue-300. Oral contrast was administered. Two-dimensional coronal an d sagittal reconstructions were obtained. Findings: CHEST: LUNGS/ PLEURA: Moderate to advanced centrilobular emphysematous changes. Biapical pleural-parenchymal scarring. Resolution. Resolution of ground glass nodularity in the periphery of the left base. No ne w suspicious pulmonary nodules or masses. AIRWAY: Patent and unremarkable.. HEART: Size within normal limits. No pericardial effusion. Scattered 3 vessel coronary arterial calci fications. MEDIASTINUM: No pathologically enlarged lymph nodes greater than 1 cm short axis. VASCULATURE: No aortic aneurysm. Aberrant right subclavian artery taking a retropharyngeal course re demonstrated. MUSCULOSKELETAL: No acute osseous abnormalities. No aggressive osseous lesion. SOFT TISSUES/LYMPH NODES: Unremarkable. LOWER NECK: Stable hypodense 8 mm nodule within the left thyroid lobe. ABDOMEN: ABDOMEN LIVER: Unremarkable GALLBLADDER AND BILE DUCTS: Unremarkable. PANCREAS: Unremarkable. SPLEEN: Unremarkable. ADRENAL GLANDS: Unremarkable. KIDNEYS AND URETERS: No evidence of hydronephrosis. No left renal calculi. Nonobstructive right infer ior pole 6 mm calculus. Kidneys enhance symmetrically. Contrast is demonstrated within both collectin g systems on the delayed phase. PELVIS BLADDER: Distended urinary bladder. REPRODUCTIVE: Uterus is surgically absent. ABDOMEN & PELVIS STOMACH AND BOWEL: Stomach and duodenum are unremarkable. Moderate colonic stool burden. Enteric cont rast reaches the transverse colon. No focal wall thickening. Sigmoid diverticulosis. No evidence of b owel obstruction. PERITONEUM: No evidence of pneumoperitoneum or free fluid. VASCULATURE: Moderate atherosclerotic calcifications are present throughout the abdominal aorta and i ts branches. No abdominal aortic aneurysm. MUSCULOSKELETAL: No acute osseous abnormalities. No aggressive osseous lesion. Stable sclerotic focus within the left pubic body likely representing a benign bone island. LYMPH NODES: No gross evidence for lymphadenopathy. SOFT TISSUE/ABDOMINAL WALL: Unremarkable IMPRESSION: 1. Resolution of previously demonstrated adenopathy and left lower lobe pulmonary nodularity. No new suspicious pulmonary nodularity or adenopathy to suggest active recurrence. 2. Nonobstructive right renal calculus redemonstrated. 3. Moderate colonic stool burden with sigmoid diverticulosis.
== END | disposition home or self-care (01) ==
LOC: RADCTMAIN 09:11
PROVIDERS: ATTEND Internal Medicine Hematology & Oncology
DX: C34.92 Malignant neoplasm of unspecified part of left bronchus or lung (principal); J43.8 Other emphysema; J44.9 Chronic obstructive pulmonary disease, unspecified; N20.0 Calculus of kidney; K57.30 Diverticulosis of large intestine without perforation or abscess without bleeding; R11.2 Nausea with vomiting, unspecified
CPT/HCPCS: 71260; 74177; Q9967

== ENCOUNTER → 2023-11-03 | Outpatient (CLI) | payer BC ==
--- NOTE | 2023-11-03 11:26 | MR ---
EXAMINATION TYPE: MR brain wo/w con DATE OF EXAM: 11/03/2023 COMPARISON: 08/02/2023 HISTORY: Dizziness, hx of cancer TECHNIQUE: Multiplanar, multisequence images of the brain and brainstem is performed without and with IV contras t, utilizing 4 mL intravenous Gadavist . FINDINGS: Diffusion weighted images demonstrate no evidence of a recent infarct or other diffusion ab normality. There is a 1.1 x 1.1 cm enhancing mass within the left cerebellum with mild mass effect upon the left cerebellar peduncle of the pontomedullary junction. Changes of chronic sinusitis. Areas of abnormal signal within the white matter and ashwini compatible wi th remote microvascular ischemic disease. There is no evidence of midline shift or mass effect. Crani ocervical junction is maintained. Partially empty sella turcica. Mild changes of chronic mastoiditis. IMPRESSION: 1. There is a 1.1 x 1.1 cm new mass within the left cerebellar hemisphere. Correlate for metastases. 2. Degenerative and remote ischemic changes. 3. Chronic sinusitis. A Yellow level critical message alert has been initiated for [facility] Brian Obregon via the [employer] Critical Results System on 11/03/2023 11:15 AM. This message alert has been sent to Alfredo~ALYCE Obregon via the preferences provided by the clinician for the receipt of Radio logy Critical Findings. Message ID [id number]. [facility], , 11/03/2023 11:23 AM
== END | disposition home or self-care (01) ==
LOC: RADMRIMAIN 10:00
PROVIDERS: ATTEND Radiology Radiation Oncology
DX: C77.1 Secondary and unspecified malignant neoplasm of intrathoracic lymph nodes (principal); C34.32 Malignant neoplasm of lower lobe, left bronchus or lung; J32.9 Chronic sinusitis, unspecified; G31.9 Degenerative disease of nervous system, unspecified
CPT/HCPCS: 70553

== ENCOUNTER → 2023-11-05 | Outpatient (CLI) | payer BC ==
[2023-11-05 09:04] LABS: African American GFR (CKD) >90 (>60 ml/min/1.73 sqM); Blood Urea Nitrogen 21 mg/dL (7-17); Non-African American GFR(CKD) >90 (>60 ml/min/1.73 sqM)
--- NOTE | 2023-11-10 13:51 | CT ---
EXAMINATION TYPE: CT ChestAbdPelvis w con DATE OF EXAM: 11/05/2023 INDICATION: Hx lung ca, routine follow up COMPARISON: 08/27/2023 CT DLP: 421.90 mGycm CONTRAST: Performed with Oral Contrast and with IV Contrast, patient injected with 100 mL of Isovue 300. TECHNIQUE: Axial images at 5 mm thick sections. Reconstructed images in the coronal plane. Delayed images through the kidneys. FINDINGS: CT CHEST: Portion of the thyroid visualized is normal. No suspicious lung nodules or focal infiltrates are present. Advanced emphysematous changes are prese nt No enlarged mediastinal or hilar adenopathy is evident. The ascending aorta diameter at the level of the main pulmonary artery is 2.7 cm. The main pulmonary artery diameter at the bifurcation is 2.[address] ABDOMEN: Liver: Normal Spleen: Normal Pancreas: Normal Adrenal glands: The adrenal glands are normal. Gallbladder: Normal Kidneys: No masses are evident. No hydronephrosis is present. No cysts are present. Delayed images were obtained through the kidneys, which remain unremarkable. Nonobstructing renal stone may be on t he right mid anterior kidney. Aorta: Vascular calcification is within the aorta. Inferior vena cava: Normal. CT PELVIS: Loops of bowel within the abdomen and pelvis are normal. There are loops of bowel which are incom pletely distended or lack oral contrast limiting their evaluation. Appendix: Not identified. No dilated tubular structure or inflammatory changes are evident. Urinary bladder: Normal. Genitourinary structures: Uterus and ovaries are not identified. Osseous structures: No suspicious lytic or sclerotic lesions. IMPRESSION: 1. Nonobstructing right renal stone. 2. COPD. 3. No suspicious changes to suggest recurrent or metastatic lung cancer [facility], Workstation: [facility], 11/10/2023 1:49 PM
== END | disposition home or self-care (01) ==
LOC: RADCTMAIN 07:39
PROVIDERS: ATTEND Internal Medicine Hematology & Oncology
DX: C34.92 Malignant neoplasm of unspecified part of left bronchus or lung
CPT/HCPCS: 36415; 71260; 74177; 82565; 84520

== ENCOUNTER → 2023-12-14 | Outpatient (CLI) | payer BC, OTHER ==
--- NOTE | 2023-12-14 10:34 | MR ---
EXAMINATION TYPE: MR brain wo/w con DATE OF EXAM: 12/14/2023 10:22 AM COMPARISON: 11/03/2023. 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 The patient was then given intravenous contrast and multi planar, T1 fat-saturation images wer e obtained. IV Contrast: 5 cc Gadavist FINDINGS: Although reduction in size of left inferior cerebellar peduncle Mantey mass measuring 5 mm previously up to 14 mm on 11/03/2023. The javier-white junctions, ventricular system, basal cisterns appear unrema rkable. Diffusion-weighted imaging shows no evidence of restricted diffusion to suggest acute/subacu te infarct. Intracranial arterial flow voids are maintained. Midline structures show no abnormality. Scattered foci of high T2 signal intensity are seen within the periventricular white matter. The susc eptibility weighted images do not reveal any evidence for micro-hemorrhage. The bone marrow signal is within normal limits. Paranasal sinuses and mastoid air cells: Mucous retention cyst in left maxillary sinus. Visualized orbits: Orbital contents are intact. IMPRESSION: 1. Positive response to therapy with decrease in size of left inferior cerebellar peduncle mass salty uring 5 mm previously 14 mm. No new masses identified. 2. Nonspecific white matter changes, likely related to small vessel ischemic disease. [facility], , 12/14/2023 10:32 AM
== END | disposition home or self-care (01) ==
LOC: RADMRIMAIN 07:35
PROVIDERS: ATTEND Radiology Radiation Oncology
DX: C79.31 Secondary malignant neoplasm of brain (principal); C77.1 Secondary and unspecified malignant neoplasm of intrathoracic lymph nodes; C34.32 Malignant neoplasm of lower lobe, left bronchus or lung; J34.1 Cyst and mucocele of nose and nasal sinus
CPT/HCPCS: 70553; A9585

== ENCOUNTER 2024-01-19 15:01 | Observation (INO) | payer OTHER ==
--- NOTE | 2024-01-19 15:47 | ED ---
Chest Pain HPI - General Chief Complaint: Chest Pain Stated Complaint: chest pain Time Seen by Provider: 01/19/24 15:20 Source: patient, EMS, RN notes reviewed Mode of arrival: EMS Limitations: no limitations - History of Present Illness Initial Comments: This is a 63-year-old female with history of COPD and metastatic lung cancer presenting to the emergency department via EMS for chief complaint of chest pain and shortness of breath. Patient states that approximately at 1300 she began to experience mid chest pain described as a sharp sensation with associated pain in her left mid back. When EMS arrived to the patient's home she was found to be hypoxic with a O2 saturation in the low 80s on room air and patient states that she does not wear supplemental oxygen at home. She states she has been experiencing a worsening productive cough, chills, body aches and congestion. Currently she is denying chest pain, shortness of breath, heart palpitations. - Related Data Home Medications Medication Instructions Recorded Confirmed Montelukast [Singulair] 10 mg PO HS 02/29/20 01/19/24 Atorvastatin [Lipitor] 20 mg PO HS 05/21/21 01/19/24 Levocetirizine Dihydrochloride 5 mg PO HS 05/21/21 01/19/24 Albuterol Inhaler [Ventolin Hfa 2 puff INHALATION RT-Q4H PRN 11/01/22 01/19/24 Inhaler] ALPRAZolam [Xanax] 0.5 mg PO DAILY PRN 01/19/24 01/19/24 Albuterol Nebulized [Ventolin 2.5 mg INHALATION RT-TID PRN 01/19/24 01/19/24 Nebulized] HYDROcodone/APAP 5-325MG [Summit 1 tab PO QID PRN 01/19/24 01/19/24 5-325] Ondansetron Odt [Zofran Odt] 4 mg PO W/SUPPER 01/19/24 01/19/24 Umeclidinium Brm/Vilanterol Tr 1 puff INHALATION RT-DAILY 01/19/24 01/19/24 [Anoro Ellipta 62.5-25 Mcg INH] Allergies Allergy/AdvReac Type Severity Reaction Status Date / Time ciprofloxacin [From Cipro] Allergy Rash/Hives, Verified 01/19/24 16:50 SWELLING erythromycin base Allergy Rash/Hives, Verified 01/19/24 16:50 SWELLING moxifloxacin [From Avelox] Allergy Rash/Hives, Verified 01/19/24 16:50 SWELLING nitrofurantoin Allergy Rash/Hives, Verified 01/19/24 16:50 [From Macrodantin] SWELLING Penicillins Allergy Rash/Hives, Verified 01/19/24 16:50 SWELLING Quinolones Allergy Rash/Hives, Verified 01/19/24 16:50 SWELLING Sulfa (Sulfonamide Allergy Rash/Hives, Verified 01/19/24 16:50 Antibiotics) SWELLING sulfamethoxazole Allergy Rash/Hives, Verified 01/19/24 16:50 [From Bactrim] SWELLING trimethoprim [From Bactrim] Allergy Rash/Hives, Verified 01/19/24 16:50 SWELLING Review of Systems ROS Statement: Those systems with pertinent positive or pertinent negative responses have been documented in the HPI. ROS Other: All systems not noted in ROS Statement are negative. Past Medical History Past Medical History: COPD, Hyperlipidemia Additional Past Medical History / Comment(s): KIDNEY STONES, EMPHYSEMA, RECENT 3 MASSES FOUND IN LT LUNG History of Any Multi-Drug Resistant Organisms: None Reported Past Surgical History: Breast Surgery, Hysterectomy, Tonsillectomy, Tubal Ligation Additional Past Surgical History / Comment(s): LAPAROSCOPIC EXAM, BREAST BIOPSY- LEFT and RIGHT-BENIGN, COLONOSCOPY Past Anesthesia/Blood Transfusion Reactions: No Reported Reaction Past Psychological History: Anxiety Smoking Status: Current every day smoker - Past Family History Brother(s) Family Medical History: Cancer, Deep Vein Thrombosis (DVT) Additional Family Medical History / Comment(s): bladder ca. 2 BROTHERS WITH CANCER General Exam Limitations: no limitations General appearance: alert, in no apparent distress, cachectic Eye exam: Present: normal appearance, PERRL, EOMI. Absent: scleral icterus, conjunctival injection, periorbital swelling ENT exam: Present: normal exam, mucous membranes moist Neck exam: Present: normal inspection. Absent: tenderness, meningismus, lymphadenopathy Respiratory exam: Present: normal lung sounds bilaterally, wheezes, decreased breath sounds. Absent: respiratory distress, rales, rhonchi, stridor Cardiovascular Exam: Present: normal rhythm, tachycardia, normal heart sounds. Absent: systolic murmur, diastolic murmur, rubs, gallop, clicks GI/Abdominal exam: Present: soft, normal bowel sounds. Absent: distended, tenderness, guarding, rebound, rigid Extremities exam: Present: normal inspection, full ROM, normal capillary refill. Absent: tenderness, pedal edema, joint swelling, calf tenderness Back exam: Present: normal inspection Skin exam: Present: warm, dry, intact, normal color. Absent: rash Course Vital Signs 01/19/24 01/19/24 01/19/24 15:11 16:11 16:20 Temperature 98.7 F Pulse Rate 137 H 124 H 124 H Respiratory 20 18 18 Rate Blood Pressure 121/88 O2 Sat by Pulse 83 L Oximetry 01/19/24 17:56 Temperature Pulse Rate 108 H Respiratory 18 Rate Blood Pressure 139/92 O2 Sat by Pulse 92 L Oximetry Chest Pain MDM - MDM Was pt. sent in by a medical professional or institution (, PA, DISC PAD KNOCKOUT WORKER, urgent care, hospital, or skilled nursing...) When possible be specific @ -No Did you speak to anyone other than the patient for history (EMS, parent, family, police, friend...)? What history was obtained from this source @ -No Did you review nursing and triage notes (agree or disagree)? Why? @ -I reviewed and agree with nursing and triage notes Were old charts reviewed (outside hosp., previous admission, EMS record, old EKG, old radiological studies, urgent care reports/EKG's, skilled nursing records)? Report findings @ -No old charts were reviewed Differential Diagnosis (chest pain, altered mental status, abdominal pain women, abdominal pain men, vaginal bleeding, weakness, fever, dyspnea, syncope, headache, dizziness, GI bleed, back pain, seizure, CVA, palpatations, mental health, musculoskeletal)? @ -Differential Chest Pain: Stable Angina, Unstable Angina, STEMI, NSTEMI Aortic Dissection, Pneumothorax, Musculoskeletal, Esophageal Spasm GERD, Cholecystitis, Pancreatitis, Zoster, this is not meant to be an all-inclusive list. EKG interpreted by me (3pts min.). @ -Completed at 129 sinus tachycardia with a PA interval of 109, ventricular rate 129, QRS 99, QTc 376. X-rays interpreted by me (1pt min.). @ -Chest x-ray reveals no acute cardiopulmonary process or disease and COPD changes CT interpreted by me (1pt min.). @ -CTA of the chest reveals no evidence of pulmonary embolism with right hilar lymphadenopathy. Tree-in-bud nodularity seen in the peripheral small area of consolidation seen in the left lower lobe recommend 3-month follow-up to assess underlying disease U/S interpreted by me (1pt. min.). @ -None done What testing was considered but not performed or refused? (CT, X-rays, U/S, labs)? Why? @ -None What meds were considered but not given or refused? Why? @ -None Did you discuss the management of the patient with other professionals (professionals i.e. , PA, DISC PAD KNOCKOUT WORKER, lab, RT, psych nurse, social media content manager, film crew member, teacher, chief sales officer, supportive employment case manager)? Give summary @ -I spoke with on-call physician, Dr. Smion, in regard to hypoxia and chest pain that was responsive to nitro. patient is accepted for admission with cardiology and pulmonology on consult. Was smoking cessation discussed for >3mins.? @ -No Was critical care preformed (if so, how long)? @ -No Were there social determinants of health that impacted care today? How? (Homelessness, low income, unemployed, alcoholism, drug addiction, transportation, low edu. Level, literacy, decrease access to med. care, [facility], rehab)? @ -No Was there de-escalation of care discussed even if they declined (Discuss DNR or withdrawal of care, Hospice)? DNR status @ -No What co-morbidities impacted this encounter? (DM, HTN, Smoking, COPD, CAD, Cancer, CVA, ARF, Chemo, Hep., AIDS, mental health diagnosis, sleep apnea, morbid obesity)? @ -Lung cancer, COPD, smoking Was patient admitted / discharged? Hospital course, mention meds given and route, prescriptions, significant lab abnormalities, going to OR and other pertinent info. @ -Admitted. 63-year-old female with chest pain and shortness of breath. Patient's initial vitals reveal hypoxia with an O2 saturation of 83 on room air and sinus tachycardia. EKG sinus tachycardia. Patient is noted to have decreased breath sounds bilaterally and wheezing over the lung card. She is provided with fluids, steroids, breathing treatment pending cardiac workup. Labs reveal mild leukocytosis 14.4, elevated neutrophils 11.6, hypokalemia with potassium of 2.9. Patient provided with oral potassium supplementation. Cepheid negative. Patient's D-dimer 0.49. With concern for chest pain, history of cancer, and tachycardia she will be sent for CT of the chest to rule out pulmonary embolism. CTA of the chest no evidence for pulmonary embolism with nodularity in the peripheral small area of consolidation. On reevaluation patient's oxygen saturation is in the mid 90s on 2 L nasal cannula. Patient remains mildly tachycardic with a heart rate in the 100s in sinus rhythm. Patient will be admitted to internal medicine with pulmonology, cardiology, oncology on consult for further evaluation. Echo ordered. Case discussed with my attending Dr. Valdez Undiagnosed new problem with uncertain prognosis? @ -No Drug Therapy requiring intensive monitoring for toxicity (Heparin, Nitro, Insulin, Cardizem)? @ -No Were any procedures done? @ -No Diagnosis/symptom? @ -Chest pain responsive to nitro, ACS rule out, shortness of breath Acute, or Chronic, or Acute on Chronic? @ -Acute Uncomplicated (without systemic symptoms) or Complicated (systemic symptoms)? @ -Complicated Side effects of treatment? @ -No Exacerbation, Progression, or Severe Exacerbation? @ -No Poses a threat to life or bodily function? How? (Chest pain, [place], [place], pneumonia, PE, COPD, DKA, ARF, appy, cholecystitis, CVA, Diverticulitis, Homicidal, Suicida l, threat to staff... and all critical care pts) @ -Yes Disposition Clinical Impression: Chest pain, Shortness of breath Disposition: ADMITTED IP TO THIS [facility] Condition: Serious Referrals: Juan Simon MD [Primary Care Provider] - 1-2 days Decision to Admit Reason: Admit from EC Decision Date: 01/19/24 Decision Time: 20:17
[2024-01-19 16:08] LABS: Basophils # (A) 0.1 k/uL (0-0.2); Basophils % (A) 1 %; Eosinophils # (A) 0.1 k/uL (0-0.7); Eosinophils % (A) 1 %; HCT 37.8 % (34.0-46.0); HGB 12.3 gm/dL (11.4-16.0); Lymphocytes # (A) 1.7 k/uL (1.0-4.8); Lymphocytes % (A) 12 %; MCH 30.7 pg (25.0-35.0); MCHC 32.7 g/dL (31.0-37.0); MCV 93.9 fL (80.0-100.0); Mean Platelet Volume 6.7; Monocytes # (A) 0.7 k/uL (0-1.0); Monocytes % (A) 5 %; Neutrophils # (A) 11.6 k/uL (1.3-7.7); Neutrophils % (A) 80 %; Platelet Count 356 k/uL (150-450); RBC 4.02 m/uL (3.80-5.40); RDW 13.3 % (11.5-15.5); WBC 14.4 k/uL (3.8-10.6)
[2024-01-19] MEDS: IPRATROPIUM-ALBUTEROL 3 ML NEB INHALATION STA (16:11)
[2024-01-19 16:20] LABS: ALT 23 U/L (4-34); AST 40 U/L (14-36); African American GFR (CKD) >90 (>60 ml/min/1.73 sqM); Albumin 3.1 g/dL (3.5-5.0); Alkaline Phosphatase 97 U/L (38-126); Anion Gap 5 mmol/L; Blood Urea Nitrogen 13 mg/dL (7-17); Calcium 9.1 mg/dL (8.4-10.2); Carbon Dioxide 29 mmol/L (22-30); Chloride 102 mmol/L (98-107); Glucose 102 mg/dL (74-99); Lipase 34 U/L (23-300); Magnesium 1.8 mg/dL (1.6-2.3); Non-African American GFR(CKD) >90 (>60 ml/min/1.73 sqM); Potassium 2.9 mmol/L (3.5-5.1); Sodium 136 mmol/L (137-145); Total Bilirubin 0.6 mg/dL (0.2-1.3); Total Protein 5.9 g/dL (6.3-8.2)
[2024-01-19 16:26] LABS: Partial Thromboplastin Time 31.9 sec (22.0-30.0)
[2024-01-19] MEDS: POTASSIUM CHLORIDE ER 20 MEQ TAB.ER PO STA (16:48)
[2024-01-19] MEDS: methylPREDNISolone SOD SUCCI 125 MG/2 ML VIAL IV STA (16:48)
--- NOTE | 2024-01-19 17:07 | XR ---
EXAMINATION TYPE: XR chest 2V DATE OF EXAM: 01/19/2024 4:56 PM COMPARISON: Chest radiographs from 02/20/2023 CLINICAL INDICATION: Female, 63 years old with history of Chest Pain, cough; [facility] TECHNIQUE: XR chest 2V Frontal and lateral views of the chest. FINDINGS: Lungs/Pleura: Prominent interstitial lung markings are seen scattered throughout the lungs with rubio ening of the diaphragm and increased lucency of the lung apices. No evidence of focal consolidation, pneumothorax or pleural effusion. Pulmonary vascularity: Unremarkable. Heart/mediastinum: Cardiomediastinal silhouette is unremarkable. Musculoskeletal: No acute osseous pathology. Other findings: None Lines/Tubes: IMPRESSION: 1. No acute cardiopulmonary disease process. 2. COPD changes. [facility], , 01/19/2024 5:05 PM
[2024-01-19] MEDS: SODIUM CHLORIDE 0.9% 1,000 ML IV STA (17:52)
[2024-01-19] MEDS: ALPRAZolam 0.5 MG TAB PO STA (17:52)
--- NOTE | 2024-01-19 19:47 | CT ---
EXAMINATION TYPE: CT chest angio for PE CT DLP: 175.7 mGycm, Automated exposure control for dose reduction was used. DATE OF EXAM: 01/19/2024 7:06 PM COMPARISON: Chest radiograph from same day. CT chest abdomen pelvis 11/05/2023 CLINICAL INDICATION:Female, 63 years old with history of tachy, CP, hx lung CA; cough, SOB TECHNIQUE/CONTRAST: CTA scan of the thorax is performed with IV Contrast, patient injected with 80 mL of Isovue 370, MIP images are created and reviewed these are created on a separate workstation.. FINDINGS: Pulmonary Artery: There is no evidence for a filling defect within the pulmonary vasculature to sugge st acute pulmonary embolism. The pulmonary artery is of normal size. Lungs/Pleura: Multiple areas of scattered tree-in-bud nodularity along the peripheral aspects of the lungs most notably in the left upper and left lower lobe. There is a small area of consolidation seen in the left lower lobe subpleural region. Diffuse centrilobular emphysematous changes are redemonstr ated. No pleural effusions or pneumothorax.. Airway: Large airways are patent. Heart: Heart is within normal limits for size. Vasculature: No evidence of aortic aneurysm. Mediastinum: Multiple nonenlarged lymph nodes are seen throughout the mediastinum. There is a right h ilar lymph node measuring 12 x 0.9 mm. Musculoskeletal: No acute osseous abnormalities Soft Tissues/lymph nodes: Unremarkable. Lower neck: No significant findings. Upper Abdomen: Nonenlarged lymph nodes are seen in the abdomen with the most conspicuous seen in the ludmila hepatis region measuring 7 mm in short axis.. IMPRESSION: 1. No evidence of pulmonary embolism. 2. Tree-in-bud nodularity seen in the peripheral lungs with small area of consolidation seen in the l eft lower lobe. Given the reported history of lung cancer recommend short-term 3 month follow-up CT c hest to assess for any interval changes of underlying disease after completion of clinical course. 3. Right hilar lymphadenopathy. Attention on follow-up. 4. Centrilobular emphysema. [facility], , 01/19/2024 7:44 PM
[2024-01-19] MEDS ORDERED: NALOXONE 0.4 MG/ML 1 ML VIAL IV PRN (20:17)
[2024-01-19] MEDS ORDERED: MORPHINE SULFATE 4 MG/ML SYRINGE IV PRN (20:17)
[2024-01-19] MEDS ORDERED: IBUPROFEN 400 MG TAB PO PRN (20:17)
[2024-01-19] MEDS ORDERED: ACETAMINOPHEN TAB 325 MG TAB PO PRN (20:17)
[2024-01-19] MEDS ORDERED: ALPRAZolam 0.5 MG TAB PO PRN (20:23)
[2024-01-19] MEDS ORDERED: HYDROcodone/APAP 5-325MG 1 EACH TAB PO PRN (20:23)
[2024-01-19] MEDS: MONTELUKAST 10 MG TAB PO SCH (21:29)
[2024-01-19] MEDS: LORATADINE 10 MG TAB PO SCH (21:29)
[2024-01-19] MEDS: ATORVASTATIN 20 MG TAB PO SCH (21:29)
--- NOTE | 2024-01-20 04:56 | P.CNPUL ---
History of Present Illness Consult date: 01/20/24 Requesting physician: Evelin Hernandez Reason for consult: COPD Chief complaint: Chest pain History of present illness: Patient is a 63-year-old female with past medical history significant for metastatic lung cancer, very severe COPD, hyperlipidemia, and chronic ongoing tobacco dependence. Patient does follow with Dr. Torres in the pulmonary office. She has history of small cell lung cancer, originally diagnosed on 02/20/2023 by robotic assisted bronchoscopy with mediastinal involvement and metastasis to the brain. At that time, Dr. Torres biopsied a 2.5 cm left lower lung mass. There was also some mediastinal lymphadenopathy involving the left hilum and subcarinal areas. Pathology of the lesion was positive for small cell lung cancer. There was also positive station 7 and 10L lymph nodes. She is status post chemo and radiation. Initially had good response to therapy. More recently, patient was found to have a 1.1 x 1.1 cm new mass within the left cerebellar hemisphere found on brain MRI. Follow-up brain MRI showing positive response to therapy with decrease in size of left inferior cerebellar peduncle mass measuring 5 mm previously 14 mm. No new masses found. Her oncologist is Dr. Bee. States that she is reportedly not currently on any chemotherapy. She has had 5 rounds of radiation to the brain. Yesterday afternoon, patient presented the emergency department with a chief complaint of substernal sharp chest pain. She states that this occurred while sewing. Lasting approximately 15 to 20 minutes, described as severe, nonradiating. Accompanied with nausea and shortness of breath. Patient's daughter then called EMS. Initial evaluation in the ED included a Chest CT angio which did not show any filling defects consistent with pulmonary emboli. Tree-in-bud nodularity seen in the peripheral lungs with small area of consolidation seen in the left lower lobe. There is also right hilar lymphadenopathy. Disease recurrence is difficult to exclude. Short-term follow-up was recommended. EKG: Sinus tachycardia, rate 129 bpm, no obvious acut e ischemic changes. Troponins less than 0.012 x 2. Denies previous episodes of chest pain, heart palpitations, lower extremity swelling, orthopnea. Remaining labs include a WBC count 14.4, hemoglobin 12.3, hematocrit 37.8, platelets 356. CMP: Sodium 136, potassium 2.9, chloride 102, serum bicarb 29, BUN 13, creatinine 0.57, glucose 102. Magnesium 1.8. LFTs unremarkable. Patient is currently being evaluated emergency department. No current chest pain. She is resting in bed on 2 L/min nasal cannula. SpO2 is 92%. Not in any apparent distress. Denies home O2. She does states that she has been more short of breath over the last few weeks. She does have a chronic cough. Denies any [place] ge in sputum consistency or color. Denies hemoptysis. Denies fevers or chills. States that her daughter was sick earlier in the week with a cold. She does continue to smoke cigarettes, up to almost 1/2 pack/day. Current vitals: Afebrile, heart rate 103 bpm, blood pressure 110/64 mmHg, SpO2 94% on 2 L/min nasal cannula. Review of Systems Constitutional: Reports poor appetite, Reports weight loss, Denies chills, Denies fever, Denies weight gain Ears, nose, mouth and throat: Denies dysphagia, Denies headache, Denies nasal congestion, Denies nasal discharge Cardiovascular: Reports chest pain, Reports dyspnea on exertion, Denies irregular heart beat, Denies leg edema, Denies orthopnea, Denies palpitations, Denies paroxysmal nocturnal dyspnea, Denies syncope Respiratory: Reports cough, Denies cough with sputum, Denies excessive sputum, Denies home oxygen, Denies pain on inspiration Gastrointestinal: Denies abdominal pain, Denies change in bowel habits, Denies constipation, Denies diarrhea, Denies nausea, Denies vomiting Genitourinary: Denies dysuria Integumentary: Denies rash Neurological: Denies seizures, Denies syncope Psychiatric: Denies anxiety, Denies depression Past Medical History Past Medical History: COPD, Hyperlipidemia Additional Past Medical History / Comment(s): KIDNEY STONES, EMPHYSEMA, RECENT 3 MASSES FOUND IN LT LUNG History of Any Multi-Drug Resistant Organisms: None Reported Past Surgical History: Breast Surgery, Hysterectomy, Tonsillectomy, Tubal Ligation Additional Past Surgical History / Comment(s): LAPAROSCOPIC EXAM, BREAST BIOPSY- LEFT and RIGHT-BENIGN, COLONOSCOPY Past Anesthesia/Blood Transfusion Reactions: No Reported Reaction Past Psychological History: Anxiety Smoking Status: Current every day smoker - Past Family History Brother(s) Family Medical History: Cancer, Deep Vein Thrombosis (DVT) Additional Family Medical History / Comment(s): bladder ca. 2 BROTHERS WITH CANCER Medications and Allergies Home Medications Medication Instructions Recorded Confirmed Type Montelukast [Singulair] 10 mg PO HS 02/29/20 01/19/24 History Atorvastatin [Lipitor] 20 mg PO HS 05/21/21 01/19/24 History Levocetirizine Dihydrochloride 5 mg PO HS 05/21/21 01/19/24 History Albuterol Inhaler [Ventolin Hfa 2 puff INHALATION RT-Q4H PRN 11/01/22 01/19/24 History Inhaler] ALPRAZolam [Xanax] 0.5 mg PO DAILY PRN 01/19/24 01/19/24 History Albuterol Nebulized [Ventolin 2.5 mg INHALATION RT-TID PRN 01/19/24 01/19/24 History Nebulized] HYDROcodone/APAP 5-325MG [[place] 1 tab PO QID PRN 01/19/24 01/19/24 History 5-325] Ondansetron Odt [Zofran Odt] 4 mg PO W/SUPPER 01/19/24 01/19/24 History Umeclidinium Brm/Vilanterol Tr 1 puff INHALATION RT-DAILY 01/19/24 01/19/24 History [Anoro Ellipta 62.5-25 Mcg INH] Allergies Allergy/AdvReac Type Severity Reaction Status Date / Time ciprofloxacin [From Cipro] Allergy Rash/Hives, Verified 01/19/24 16:50 SWELLING erythromycin base Allergy Rash/Hives, Verified 01/19/24 16:50 SWELLING moxifloxacin [From Avelox] Allergy Rash/Hives, Verified 01/19/24 16:50 SWELLING nitrofurantoin Allergy Rash/Hives, Verified 01/19/24 16:50 [From Macrodantin] SWELLING Penicillins Allergy Rash/Hives, Verified 01/19/24 16:50 SWELLING Quinolones Allergy Rash/Hives, Verified 01/19/24 16:50 SWELLING Sulfa (Sulfonamide Allergy Rash/Hives, Verified 01/19/24 16:50 Antibiotics) SWELLING sulfamethoxazole Allergy Rash/Hives, Verified 01/19/24 16:50 [From Bactrim] SWELLING trimethoprim [From Bactrim] Allergy Rash/Hives, Verified 01/19/24 16:50 SWELLING Physical Exam Vitals: Vital Signs Temp Pulse Resp BP Pulse Ox 01/20/24 01:39 93 16 92/51 96 01/19/24 21:26 108 H 18 140/96 93 L 01/19/24 17:56 108 H 18 139/92 92 L 01/19/24 16:20 124 H 18 01/19/24 16:11 124 H 18 01/19/24 15:11 98.7 F 137 H 20 121/88 83 L Intake and Output 01/19/24 01/19/24 01/20/24 14:59 22:59 06:59 Other: Weight 42.184 kg GENERAL EXAM: Alert, 63-year-old white female, underweight, comfortable in no apparent distress. HEAD: Normocephalic and atraumatic EYES: Normal reaction of pupils, equal size. NOSE: Clear with pink turbinates. THROAT: No erythema or exudates. NECK: No masses, no JVD. CHEST: No chest wall deformity. LUNGS: Equal air entry with faint expiratory wheezing on forced expiration. No rhonchi or focal dullness. On 2 L/min nasal cannula.. No conversational dyspnea or accessory muscle use while at rest CVS: S1 and S2 normal with no audible murmur, regular rhythm. No extra heart sounds ABDOMEN: No hepatosplenomegaly, active bowel sounds, no guarding or rigidity. SPINE: No scoliosis or deformity SKIN: No rashes CENTRAL NERVOUS SYSTEM: No focal deficits, tone is normal in all 4 extremities. EXTREMITIES: There is no peripheral edema, clubbing, or cyanosis. Peripheral pulses are intact. Results - Laboratory Findings CBC and BMP: 01/19/24 16:01 01/19/24 16:01 PT/INR, D-dimer PT 11.0 sec (10.0-12.5) 01/19/24 16:01 INR 1.0 (<1.2) 01/19/24 16:01 D-Dimer 0.59 mg/L FEU (<0.60) 01/19/24 16:01 Abnormal lab findings: Abnormal Labs 01/19/24 01/19/24 01/19/24 16:01 16:01 16:01 WBC 14.4 H Neutrophils # 11.6 H APTT 31.9 H Sodium 136 L Potassium 2.9 L Glucose 102 H AST 40 H Total Protein 5.9 L Albumin 3.1 L - Diagnostic Findings Chest x-ray: image reviewed CT scan - chest: image reviewed Assessment and Plan Assessment: Atypical chest pain Acute hypoxemic respiratory failure, likely secondary to acute exacerbation of COPD, chest CT angio which did not show any filling defects consistent with pulmonary emboli. Tree-in-bud nodularity seen in the peripheral lungs with small nodular area of consolidation seen in the left lower lobe. There is also right hilar lymphadenopathy. Disease recurrence is difficult to exclude. Short-term follow-up is recommended. Small cell lung carcinoma, originally diagnosed back on 02/20/2023 via robotic assisted bronchoscopy with mediastinal involvement and metastasis to the brain. At that time, Dr. Torres biopsied a 2.5 cm left lower lung mass. There was also some mediastinal lymphadenopathy involving the left hilum and subcarinal areas. Pathology of the lesion was positive for small cell lung cancer. There was also positive station 7 and 10L lymph nodes. She is status post chemo and radiation. Initially, had good response to therapy 1.1 x 1.1 cm left cerebellar hemisphere found on brain MRI dated back October,. Follow-up brain MRI showing positive response to therapy with decrease in size of left inferior cerebellar peduncle mass measuring 5 mm previously 14 mm. No new masses found Acute leukocytosis Hypokalemia, replace per protocol Chronic ongoing tobacco dependence, patient continues to smoke almost 1/2 pack/day Very severe chronic obstructive pulmonary disease, that FEV1 26% of predicted normally maintained on Anoro and as needed albuterol inhaler History of hyperlipidemia Plan: Patient's medications, labs, imaging reviewed Continue supplemental oxygen the main oxygen saturation of 90% or greater Start patient on combination of Symbicort inhaler, IV Solu-Medrol, and bronchodilators [id number] Will start patient on doxycycline Check procalcitonin Smoking cessation counseling performed, nicotine patch offered Monitor and replace electrolytes per protocol Oncology is consulted Case will be discussed with my supervising physician later this morning. We will continue to follow I have personally seen and examined the patient, performed the documentation and the assessment and plan as written. Number of minutes spent on the visit:20 Time with Patient: Greater than 30
[2024-01-20] MEDS ORDERED: IPRATROPIUM-ALBUTEROL 3 ML NEB INHALATION SCH (06:00)
[2024-01-20] MEDS: methylPREDNISolone SOD SUCCI 125 MG/2 ML VIAL IV SCH (06:33)
[2024-01-20] MEDS ORDERED: FORMOTEROL FUMARATE 20 MCG/2 ML NEBU INHALATION SCH (08:00)
[2024-01-20] MEDS: IPRATROPIUM 0.5 MG/2.5 ML NEBU INHALATION SCH (08:26)
[2024-01-20] MEDS: SYMBICORT 160-4.5 MCG INHALER INHALATION SCH (08:27)
[2024-01-20 08:47] LABS: HCT 36.1 % (37.2-46.3); HGB 11.6 g/dL (12.0-15.0); MCH 30.9 pg (27.0-32.0); MCHC 32.1 g/dL (32.0-37.0); NRBC Per 100 WBC 0 X 10*3/uL (0.00-0.01); Platelet Count 347 X 10*3/uL (140-440); RBC 3.76 X 10*6/uL (4.10-5.20); RDW 13.2 % (11.5-14.5); WBC 7.91 X 10*3/uL (4.50-10.00)
[2024-01-20 09:02] LABS: ALT 21 U/L (8-44); AST 28 U/L (13-35); Albumin/Globulin Ratio 1.25 Ratio (1.60-3.17); Alkaline Phosphatase 85 U/L (41-126); Blood Urea Nitrogen 13.6 mg/dL (9.0-27.0); Calcium 8.9 mg/dL (8.7-10.3); Carbon Dioxide 29.9 mmol/L (21.6-31.8); Chloride 104 mmol/L (96-109); Globulin 2.4 g/dL (1.6-3.3); Glucose 168 mg/dL (70-110); Potassium 4.1 mmol/L (3.5-5.5); Sodium 143 mmol/L (135-145); Total Bilirubin <0.2 mg/dL (0.3-1.2); Total Protein 5.4 g/dL (6.2-8.2)
[2024-01-20 09:33] LABS: Basophils # (A) 0.06 X 10*3/uL (0.00-0.10); Basophils % (A) 0.8 %; Eosinophils # (A) 0 X 10*3/uL (0.04-0.35); Eosinophils % (A) 0 %; Lymphocytes # (A) 0.76 X 10*3/uL (0.90-5.00); Lymphocytes % (A) 9.6 %; Monocytes # (A) 0.28 X 10*3/uL (0.20-1.00); Monocytes % (A) 3.5 %; Neutrophils # (A) 6.52 X 10*3/uL (1.80-7.70); Neutrophils % (A) 82.4 %
[2024-01-20] MEDS: METOPROLOL TARTRATE 25 MG TAB PO SCH (09:45)
[2024-01-20] MEDS: NICOTINE 21MG/24HR PATCH TRANSDERM SCH (09:46)
[2024-01-20] MEDS: DOXYCYCLINE 100 MG CAP PO SCH (09:46)
[2024-01-20] MEDS: PANTOPRAZOLE 40 MG/10 ML VIAL IV SCH (09:46)
[2024-01-20] MEDS: IPRATROPIUM-ALBUTEROL 3 ML NEB INHALATION SCH (11:20)
--- NOTE | 2024-01-20 12:22 | P.CRDCN ---
History of Present Illness Consult date: 01/20/24 Consult reason: chest pain History of present illness: This is a 63-year-old female with past medical history of recent diagnosis of small cell lung cancer with metastasis, severe COPD, hyperlipidemia, chronic tobacco use and dependence. We have been asked to evaluate the patient for chest pain. Regarding lung cancer, patient states that she was diagnosed in January 2023 and started chemotherapy and radiation therapy on March 26. Patient was recently found to have a new mass in the left cerebellar hemisphere on brain MRI status post radiation to the brain with improvement. Patient presented to the emergency center due to right sided chest pain and shortness of breath. Pain was of sharp nature and also went to her back. Her pulse ox was apparently low at home. Blood pressure 118/78, heart rate 112, pulse ox 97% on 2 L. Patient also has a pulse ox 88% on room air. -EKG: Sinus rhythm with no acute ST-T wave changes with ventricular rate 129 bpm. -Chest x-ray: No acute process. COPD changes. CTA of the chest ruled out PE. Tree-in-bud nodularity in the peripheral lungs with small area of consolidation in the left lower lobe. Right hilar lymphadenopathy. Centrilobular emphysema. -Laboratory studies: WBC 14.4, hemoglobin 12.3, D-dimer 0.59, sodium 136, potassium 2.9, BUN 13, creatinine 0.57. Troponin negative x 2. Influenza A, influenza B, RSV, COVID-19 not detected. -Home cardiac medications: Atorvastatin 20 mg at bedtime. -Echocardiogram performed 09/30/2022: Normal LV systolic function. Prominent posterior pericardial stripe. Review Of Systems: At the time of my exam: CONSTITUTIONAL: Denies fever or chills. HEENT: Denies blurred vision, vision changes, or eye pain. Denies hemoptysis CARDIOVASCULAR: Reports chest pain. Denies orthopnea. Denies PND. Denies palpitations RESPIRATORY: Reports shortness of breath. GASTROINTESTINAL: Denies abdominal pain. Denies nausea or vomiting. HEMATOLOGIC: Denies bleeding disorders. GENITOURINARY: Denies any blood in urine. SKIN: Denies puritis. Denies rash. Physical examination: Gen: This is a thin cachectic appearing 63-year-old female in no acute respirat ory distress VS: reviewed HEENT: Head is atraumatic, normocephalic. Pupils equal, round. Sclerae is anicteric. NECK: Supple. No JVD. LUNGS: Diminished breath sounds with. No intercostal retractions. HEART: Regular rate and rhythm. No murmur. ABDOMEN: Soft No tenderness. EXTREMITIES: No pedal edema. No calf tenderness. NEUROLOGICAL: Patient is awake, alert and oriented x3. Assessment: Acute hypoxic respiratory failure secondary to COPD exacerbation Small cell lung cancer followed by Dr. Santos status post chemotherapy and radiation therapy Severe COPD Chest pain, noncardiac, acute coronary syndrome ruled out Hyperlipidemia Chronic tobacco use and dependence Plan: Resume patient's home cardiac medications Start patient on Lopressor 25 mg twice daily and hold for systolic blood pr essure less than 100 Obtain 2-D echocardiogram and Doppler study to assess cardiac structure and fun ction Further recommendations to follow based upon clinical course Thank you kindly for this consultation. Nurse practitioner note has been reviewed, I agree with documented findings and plan of care. Patient was seen and examined. Past Medical History Past Medical History: COPD, Hyperlipidemia Additional Past Medical History / Comment(s): KIDNEY STONES, EMPHYSEMA, RECENT 3 MASSES FOUND IN LT LUNG History of Any Multi-Drug Resistant Organisms: None Reported Past Surgical History: Breast Surgery, Hysterectomy, Tonsillectomy, Tubal Ligation Additional Past Surgical History / Comment(s): LAPAROSCOPIC EXAM, BREAST BIOPSY- LEFT and RIGHT-BENIGN, COLONOSCOPY Past Anesthesia/Blood Transfusion Reactions: No Reported Reaction Past Psychological History: Anxiety Smoking Status: Current every day smoker - Past Family History Brother(s) Family Medical History: Cancer, Deep Vein Thrombosis (DVT) Additional Family Medical History / Comment(s): bladder ca. 2 BROTHERS WITH CANCER Medications and Allergies Home Medications Medication Instructions Recorded Confirmed Type Montelukast [Singulair] 10 mg PO HS 02/29/20 01/19/24 History Atorvastatin [Lipitor] 20 mg PO HS 05/21/21 01/19/24 History Levocetirizine Dihydrochloride 5 mg PO HS 05/21/21 01/19/24 History Albuterol Inhaler [Ventolin Hfa 2 puff INHALATION RT-Q4H PRN 11/01/22 01/19/24 History Inhaler] ALPRAZolam [Xanax] 0.5 mg PO DAILY PRN 01/19/24 01/19/24 History Albuterol Nebulized [Ventolin 2.5 mg INHALATION RT-TID PRN 01/19/24 01/19/24 History Nebulized] HYDROcodone/APAP 5-325MG [[place] 1 tab PO QID PRN 01/19/24 01/19/24 History 5-325] Ondansetron Odt [Zofran Odt] 4 mg PO W/SUPPER 01/19/24 01/19/24 History Umeclidinium Brm/Vilanterol Tr 1 puff INHALATION RT-DAILY 01/19/24 01/19/24 History [Anoro Ellipta 62.5-25 Mcg INH] Allergies Allergy/AdvReac Type Severity Reaction Status Date / Time ciprofloxacin [From Cipro] Allergy Rash/Hives, Verified 01/19/24 16:50 SWELLING erythromycin base Allergy Rash/Hives, Verified 01/19/24 16:50 SWELLING moxifloxacin [From Avelox] Allergy Rash/Hives, Verified 01/19/24 16:50 SWELLING nitrofurantoin Allergy Rash/Hives, Verified 01/19/24 16:50 [From Macrodantin] SWELLING Penicillins Allergy Rash/Hives, Verified 01/19/24 16:50 SWELLING Quinolones Allergy Rash/Hives, Verified 01/19/24 16:50 SWELLING Sulfa (Sulfonamide Allergy Rash/Hives, Verified 01/19/24 16:50 Antibiotics) SWELLING sulfamethoxazole Allergy Rash/Hives, Verified 01/19/24 16:50 [From Bactrim] SWELLING trimethoprim [From Bactrim] Allergy Rash/Hives, Verified 01/19/24 16:50 SWELLING Physical Exam Vitals: Vital Signs Temp Pulse Resp BP Pulse Ox 01/20/24 07:39 98.3 F 112 H 14 118/78 88 L 01/20/24 06:34 101 H 18 104/65 97 01/20/24 05:31 99 18 106/63 96 01/20/24 03:45 103 H 18 110/64 94 L 01/20/24 01:39 93 16 92/51 96 01/19/24 21:26 108 H 18 140/96 93 L 01/19/24 17:56 108 H 18 139/92 92 L 01/19/24 16:20 124 H 18 01/19/24 16:11 124 H 18 01/19/24 15:11 98.7 F 137 H 20 121/88 83 L Intake and Output 01/19/24 01/20/24 01/20/24 22:59 06:59 14:59 Other: Weight 42.184 kg Results 01/20/24 05:58 01/20/24 05:58 Cardiac Enzymes 01/19/24 01/19/24 01/19/24 Range/Units 16:01 16:01 19:00 AST 40 H (14-36) U/L Troponin I <0.012 <0.012 (0.000-0.034) ng/mL Coagulation 01/19/24 Range/Units 16:01 PT 11.0 (10.0-12.5) sec APTT 31.9 H (22.0-30.0) sec CBC 01/19/24 Range/Units 16:01 WBC 14.4 H (3.8-10.6) k/uL RBC 4.02 (3.80-5.40) m/uL Hgb 12.3 (11.4-16.0) gm/dL Hct 37.8 (34.0-46.0) % Plt Count 356 (150-450) k/uL Comprehensive Metabolic Panel 01/19/24 Range/Units 16:01 Sodium 136 L (137-145) mmol/L Potassium 2.9 L (3.5-5.1) mmol/L Chloride 102 (98-107) mmol/L Carbon Dioxide 29 (22-30) mmol/L BUN 13 (7-17) mg/dL Creatinine 0.57 (0.52-1.04) mg/dL Glucose 102 H (74-99) mg/dL Calcium 9.1 (8.4-10.2) mg/dL AST 40 H (14-36) U/L ALT 23 (4-34) U/L Alkaline Phosphatase 97 (38-126) U/L Total Protein 5.9 L (6.3-8.2) g/dL Albumin 3.1 L (3.5-5.0) g/dL Current Medications Generic Name Dose Route Start Last Admin Trade Name Freq PRN Reason Stop Dose Admin Acetaminophen 650 mg 01/19/24 20:17 Acetaminophen Tab 325 Mg Tab PO Q6HR PRN Mild Pain or Fever > 100.5 Hydrocodone Bitart/Acetaminophen 1 each 01/19/24 20:23 Hydrocodone/Apap 5-325mg 1 Each Tab PO QID PRN Pain Albuterol Sulfate 2.5 mg 01/19/24 20:23 Albuterol Nebulized 2.5 Mg/3 Ml INHALATION RT-TID PRN Shortness Of Breath Or Wheezing Albuterol/Ipratropium 3 ml 01/20/24 08:00 Ipratropium-Albuterol 3 Ml Neb INHALATION RT-QID [facility] Alprazolam 0.5 mg 01/19/24 20:23 Alprazolam 0.5 Mg Tab PO DAILY PRN Anxiety Atorvastatin Calcium 20 mg 01/19/24 21:00 01/19/24 21:29 Atorvastatin 20 Mg Tab PO 20 mg HS [facility] Administration Budesonide/Formoterol Fumarate 2 puff 01/20/24 08:00 Symbicort 160-4.5 Mcg Inhaler INHALATION RT-BID [facility] Doxycycline Monohydrate 100 mg 01/20/24 09:00 Doxycycline 100 Mg Cap PO BID [facility] Protocol Ibuprofen 400 mg 01/19/24 20:17 Ibuprofen 400 Mg Tab PO Q6HR PRN Mild Pain or Fever > 100.5 Ipratropium [place] 0.5 mg 01/20/24 08:00 Ipratropium 0.5 Mg/2.5 Ml Nebu INHALATION RT-QID [facility] Loratadine 10 mg 01/19/24 21:00 01/19/24 21:29 Loratadine 10 Mg Tab PO 10 mg HS [facility] Administration Methylprednisolone Sodium Succinate 60 mg 01/20/24 06:00 01/20/24 06:33 Methylprednisolone Sod Succi 125 Mg/2 Ml Vial IV 60 mg Q6HR [facility] Administration Montelukast Sodium 10 mg 01/19/24 21:00 01/19/24 21:29 Montelukast 10 Mg Tab PO 10 mg HS [facility] Administration Morphine Sulfate 4 mg 01/19/24 20:17 Morphine Sulfate 4 Mg/Ml Syringe IV Q4HR PRN Severe Pain (Scale 7 to 10) Naloxone HCl 0.2 mg 01/19/24 20:17 Naloxone 0.4 Mg/Ml 1 Ml Vial IV Q2M PRN Opioid Reversal Nicotine 1 patch 01/20/24 09:00 Nicotine 21mg/24hr Patch TRANSDERM DAILY [facility] Ondansetron HCl 4 mg 01/20/24 17:30 Ondansetron Odt 4 Mg Tab PO W/SUPPER [facility] Pantoprazole Sodium 40 mg 01/20/24 09:00 Pantoprazole 40 Mg/10 Ml Vial IV DAILY [facility] Intake and Output 01/19/24 01/20/24 01/20/24 22:59 06:59 14:59 Other: Weight 42.184 kg 01/19/24 16:01 01/19/24 16:01
[2024-01-20 14:38] VITALS: BMI 16.0
[2024-01-20] MEDS: ALBUTEROL NEBULIZED 2.5 MG/3 ML INHALATION PRN (15:32)
[2024-01-20] MEDS: ONDANSETRON ODT 4 MG TAB PO SCH (17:14)
--- NOTE | 2024-01-20 17:19 | P.CONS ---
History of Present Illness - Reason for Consult Consult date: 01/20/24 lung cancer Requesting physician: Evelin Hernandez - Chief Complaint chest pain - History of Present Illness Patient is a 63 year old female with a significant history of lung cancer, who follows with Dr. Bee. The patient had a routine low-dose screening chest CT on 01/23/23. This showed a new solid-appearing mass in the left lower lobe, 2 x 1.5 cm. A PET scan was then performed on 01/31/23, confirming severe pulmonary emphysema, and FDG avid 18 the above-mentioned nodule compatible with malignancy. There was extension into the left hilum, as well as uptake in the left hilar nodes, subcarinal nodes, and low level activity in bilateral lower paratracheal nodes. There was no evidence of any distant disease on PET scan. The patient was referred to pulmonary medicine and had bronchoscopy with biopsy on 02/20/23. 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 The patient was then referred here for further evaluation and recommendations. She has history of smoking a pack a day since age 14. CT brain without contrast 10/02 showed some chronic appearing periventricular metastatic changes. Echocardiogram also in 10/02 had shown normal LV function. The patient had an ultrasound of the thyroid in 10/23 which had shown a moderately suspicious nodule in the left lobe of the thyroid, with subsequent biopsy apparently negative for malignancy. MRI brain was subsequently performed and was negative. She started concurrent chemo/RT with HAND TUBE WINDER/Cisplatin, with C 1 on 03/26/23. She completed concurrent chemo RT around 05/02/23, with 2 cycles of chemo. She then had 2 additional cycles, completing those on 05/30/23. She was then placed on surveillance. CT chest abdomen and pelvis on 11/05/2023 showed no evidence of recurrence. The patient did decide to proceed with PCI with radiaiton oncology, and completed the same in mid 12/03. Brain MRI obtained on 12/14/2023 positive response to therapy with decrease in size of left inferior cerebellar peduncle mass measuring 5 mm, previously 14 mm. No new masses identified. She was scheduled for repeat CT chest abdomen pelvis on 03/01/2024 with subsequent follow-up with Dr. Bee on 03/08. Patient presented to the emergency room with complaints of chest pain and shortness of breath. Patient reports her cough is at baseline with no acute changes. Denies fever. Does report recent sick contact and was experiencing fatigue and nausea but those began to improve and then subsequently developed chest pain causing her to present for further evaluation. Upon admission chest x-ray showed no acute cardiopulmonary processes. CTA chest negative for pulmonary embolism. Tree-in-bud nodularity seen in peripheral lungs with small area of consolidation seen in the left lower lobe. Right hilar lymphadenopathy measuring 12 x 0.9 mm. Centrilobular emphysema. Viral panel negative. Troponins negative. Patient is afebrile. Cardiology and pulmonology following. Antibiotics, steroids and bronchodilators started. Today CBC showing WBC 7.9, hemoglobin 11.6, platelets 347,000. Review of Systems 10 point ROS is negative except as stated in the HPI Past Medical History Past Medical History: COPD, Hyperlipidemia Additional Past Medical History / Comment(s): KIDNEY STONES, EMPHYSEMA, RECENT 3 MASSES FOUND IN LT LUNG History of Any Multi-Drug Resistant Organisms: None Reported Past Surgical History: Breast Surgery, Hysterectomy, Tonsillectomy, Tubal Ligation Additional Past Surgical History / Comment(s): LAPAROSCOPIC EXAM, BREAST BIOPSY- LEFT and RIGHT-BENIGN, COLONOSCOPY Past Anesthesia/Blood Transfusion Reactions: No Reported Reaction Past Psychological History: Anxiety Smoking Status: Current every day smoker - Past Family History Brother(s) Family Medical History: Cancer, Deep Vein Thrombosis (DVT) Additional Family Medical History / Comment(s): bladder ca. 2 BROTHERS WITH CANCER Medications and Allergies Home Medications Medication Instructions Recorded Confirmed Type Montelukast [Singulair] 10 mg PO HS 02/29/20 01/19/24 History Atorvastatin [Lipitor] 20 mg PO HS 05/21/21 01/19/24 History Levocetirizine Dihydrochloride 5 mg PO HS 05/21/21 01/19/24 History Albuterol Inhaler [Ventolin Hfa 2 puff INHALATION RT-Q4H PRN 11/01/22 01/19/24 History Inhaler] ALPRAZolam [Xanax] 0.5 mg PO DAILY PRN 01/19/24 01/19/24 History Albuterol Nebulized [Ventolin 2.5 mg INHALATION RT-TID PRN 01/19/24 01/19/24 His tory Nebulized] HYDROcodone/APAP 5-325MG [[place] 1 tab PO QID PRN 01/19/24 01/19/24 History 5-325] Ondansetron Odt [Zofran Odt] 4 mg PO W/SUPPER 01/19/24 01/19/24 History Umeclidinium Brm/Vilanterol Tr 1 puff INHALATION RT-DAILY 01/19/24 01/19/24 History [Anoro Ellipta 62.5-25 Mcg INH] Allergies Allergy/AdvReac Type Severity Reaction Status Date / Time ciprofloxacin [From Cipro] Allergy Rash/Hives, Verified 01/19/24 16:50 SWELLING erythromycin base Allergy Rash/Hives, Verified 01/19/24 16:50 SWELLING moxifloxacin [From Avelox] Allergy Rash/Hives, Verified 01/19/24 16:50 SWELLING nitrofurantoin Allergy Rash/Hives, Verified 01/19/24 16:50 [From Macrodantin] SWELLING Penicillins Allergy Rash/Hives, Verified 01/19/24 16:50 SWELLING Quinolones Allergy Rash/Hives, Verified 01/19/24 16:50 SWELLING Sulfa (Sulfonamide Allergy Rash/Hives, Verified 01/19/24 16:50 Antibiotics) SWELLING sulfamethoxazole Allergy Rash/Hives, Verified 01/19/24 16:50 [From Bactrim] SWELLING trimethoprim [From Bactrim] Allergy Rash/Hives, Verified 01/19/24 16:50 SWELLING Physical Exam Vitals: Vital Signs Temp Pulse Resp BP Pulse Ox 01/20/24 11:32 96 01/20/24 11:24 92 01/20/24 09:44 106 H 16 124/80 94 L 01/20/24 08:40 108 H 01/20/24 08:29 106 H 01/20/24 08:24 105 H 16 127/87 96 01/20/24 07:39 98.3 F 112 H 14 118/78 88 L 01/20/24 06:34 101 H 18 104/65 97 01/20/24 05:31 99 18 106/63 96 01/20/24 03:45 103 H 18 110/64 94 L 01/20/24 01:39 93 16 92/51 96 01/19/24 21:26 108 H 18 140/96 93 L 01/19/24 17:56 108 H 18 139/92 92 L 01/19/24 16:20 124 H 18 01/19/24 16:11 124 H 18 01/19/24 15:11 98.7 F 137 H 20 121/88 83 L Intake and Output 01/19/24 01/20/24 01/20/24 22:59 06:59 14:59 Other: Weight 42.184 kg - Constitutional General appearance: average body habitus, no acute distress - EENT Eyes: anicteric sclerae, EOMI ENT: hearing grossly normal - Respiratory LLL pleural rub - Cardiovascular Rhythm: regular - Gastrointestinal General gastrointestinal: soft, no tenderness - Integumentary Integumentary: no cyanotic, no jaundiced - Musculoskeletal Musculoskeletal: strength equal bilaterally - Psychiatric Psychiatric: A&O x's 3 Results CBC & Chem 7: 01/20/24 05:58 01/20/24 05:58 Labs: Abnormal Lab Results - Last 24 Hours (Table) 01/19/24 01/19/24 01/19/24 Range/Units 16:01 16:01 16:01 WBC 14.4 H (3.8-10.6) k/uL RBC (4.10-5.20) X 10*6/uL Hgb (12.0-15.0) g/dL Hct (37.2-46.3) % Immature Gran # (0.00-0.04) X 10*3/uL Neutrophils # 11.6 H (1.3-7.7) k/uL Lymphocytes # (0.90-5.00) X 10*3/uL Eosinophils # (0.04-0.35) X 10*3/uL APTT 31.9 H (22.0-30.0) sec Sodium 136 L (137-145) mmol/L Potassium 2.9 L (3.5-5.1) mmol/L Creatinine (0.6-1.5) mg/dL BUN/Creatinine Ratio (12.00-20.00) Ratio Glucose 102 H (74-99) mg/dL Total Bilirubin (0.3-1.2) mg/dL AST 40 H (14-36) U/L Total Protein 5.9 L (6.3-8.2) g/dL Albumin 3.1 L (3.5-5.0) g/dL Albumin/Globulin Ratio (1.60-3.17) Ratio 01/20/24 01/20/24 Range/Units 05:58 05:58 WBC (3.8-10.6) k/uL RBC 3.76 L (4.10-5.20) X 10*6/uL Hgb 11.6 L (12.0-15.0) g/dL Hct 36.1 L (37.2-46.3) % Immature Gran # 0.29 H (0.00-0.04) X 10*3/uL Neutrophils # (1.3-7.7) k/uL Lymphocytes # 0.76 L (0.90-5.00) X 10*3/uL Eosinophils # 0 L (0.04-0.35) X 10*3/uL APTT (22.0-30.0) sec Sodium (137-145) mmol/L Potassium (3.5-5.1) mmol/L Creatinine 0.5 L (0.6-1.5) mg/dL BUN/Creatinine Ratio 27.20 H (12.00-20.00) Ratio Glucose 168 H (74-99) mg/dL Total Bilirubin <0.2 L (0.3-1.2) mg/dL AST (14-36) U/L Total Protein 5.4 L (6.3-8.2) g/dL Albumin 3.0 L (3.5-5.0) g/dL Albumin/Globulin Ratio 1.25 L (1.60-3.17) Ratio Chest x-ray: report reviewed CT scan - abdomen: report reviewed CT scan - chest: report reviewed CT scan - pelvis: report reviewed MRI - abdomen: report reviewed Assessment and Plan (1) Small cell lung cancer Current Visit: No Status: Acute Priority: High Code(s): C34.90 - MALIGNANT NEOPLASM OF UNSP PART OF UNSP BRONCHUS OR LUNG SNOMED Code(s): 382739039 (2) Chest pain Current Visit: Yes Status: Acute Priority: High Code(s): R07.9 - CHEST PAIN, UNSPECIFIED SNOMED Code(s): 10663735 (3) Shortness of breath Current Visit: Yes Status: Acute Priority: High Code(s): R06.02 - SHORTNESS OF BREATH SNOMED Code(s): 146709384 Plan: CP/SOB: Presented to the emergency room with complaints of chest pain and shortness of breath. Patient reports her cough is at baseline with no acute changes. Reports recent sick contact and was experiencing fatigue and nausea but those began to improve and then subsequently developed chest pain -Upon admission chest x-ray showed no acute cardiopulmonary processes. CTA chest negative for pulmonary embolism. Tree-in-bud nodularity seen in peripheral lungs with small area of consolidation seen in the left lower lobe. Right hilar lymphadenopathy measuring 12 x 0.9 mm. Centrilobular emphysema. -Viral panel negative. Troponins negative. -Cardiology and pulmonology following. -Antibiotics, steroids and bronchodilators started. -Reviewed CTA findings, and discussed differential of possible infectious/infl ammatory findings vs recurrence of malignancy, however, clinical picture more likely consistent with post viral inflammation/pleurisy. -Will consult rad onc to evaluate CTA findings to r/o radiation pneumonitis Small cell lung cancer: -Oncology history as dictated in the HPI -She completed concurrent chemo RT around 05/02/23, with 2 cycles of chemo. She then had 2 additional cycles, completing those on 05/30/23. She was then placed on surveillance. -CT chest abdomen and pelvis on 11/05/2023 showed no evidence of recurrence. -The patient did decide to proceed with PCI with radiation oncology, and completed the same in mid 12/03. -Brain MRI obtained on 12/14/2023 positive response to therapy with decrease in size of left inferior cerebellar peduncle mass measuring 5 mm, previously 14 mm. No new masses identified. -Scheduled for repeat CT chest abdomen pelvis on 03/01/2024 with subsequent follow-up with Dr. Bee on 03/08 Doctor attests: I performed a history and physical examination of this patient, developed impression and plan of care. Discussed with dictator. I agree with dictators note, documented as a scribe.
--- NOTE | 2024-01-20 19:06 | P.HPIM ---
History of Present Illness H&P Date: 01/20/24 Chief Complaint: Chest pain HISTORY OF PRESENT ILLNESS: This is a 63-year-old female with a previous medical history significant for chronic tobacco use and dependence, chronic obstructive pulmonary disease, diagnosis of small cell lung cancer in February 2023 after she has had a surveillance low-dose CT scan of the chest due to her chronic smoking status for about a pack a day since the age of 14, that showed evidence of lung mass that was pursued with a PET scan followed by biopsy that documented small cell lung cancer patient was treated with chemoradiation therapy, and has been under the care of Dr. Bee, she was recently found to have a metastatic lesion to the left inferior cerebellar peduncle was around 14 mm now down to 5 mm after she received radiation therapy, has been following with Dr. Rose as well along with Dr. Bee, patient was in her usual state of health till about yesterday when she was sitting down at home working on crocheting and all of a sudden developed to have a significant pain in the right side of the chest associated with increased cough as well as shortness of breath, she ended up coming to the emergency department at [facility] for evaluation, initially had a CT scan of the chest because of elevated D-dimer that was negative for pulmonary embolism, did show evidence of tree-in-bud nodularity in the periphery of the lung with minimal consolidation in the left lower lobe associated with Right hilar lymphadenopathy and central lobar emphysema, patient was admitted to the hospital she was started on Solu-Medrol 60 mg every 6 hours, nebulized treatment in the form of DuoNeb 3 mL nebulization 4 times every day Pulmicort 1 mg nebulization twice every day, she was also seen in consultation by pulm medicine as well as by cardiology along with oncology, patient appears to be quite tachycardic, her heart rate is around 120 sinus tachycardia, her cardiac enzymes are negative, her EKG did not show significant changes, echocardiogram was ordered by cardiology, awaiting the result of that, she was also started on doxycycline 100 mg orally twice every day, follow-up with the patient very closely. REVIEW OF SYSTEMS: Constitutional: No documented fever, no chills, no night sweats. No weight change. No weakness, fatigue or lethargy. No daytime sleepiness. EENT: No headache. No blurred vision or double vision, no loss of vision. No loss of Hearing, no ringing in the ears, no dizziness. No nasal drainage or congestion. No epistaxis. No sore throat. Lungs: positive for shortness of breath, occasional cough, no sputum production. positive for wheezing. Reports dyspnea with activity. Cardiovascular: Right sided chest pain, no lower extremity edema. positive for palpitations. No paroxysmal nocturnal dyspnea. No orthopnea. No lightheadedness or dizziness. No syncopal episodes. Abdominal: Reports abdominal pain. No nausea, vomiting. No diarrhea. No constipation. No bloody or tarry stools reports loss of appetite. Genitourinary: No dysuria, increased frequency, urgency. No urinary retention. Musculoskeletal: No myalgias. No muscle weakness, no gait dysfunction, no frequent falls. No back pain. No neck pain. Integumentary: No wounds, no lesions. No rash or pruritus. No unusual bruising. No change in hair or nails. Neurologic: No aphasia. No facial droop. No change in mentation. No head injury. No headache. No paralysis. No paresthesia. Psychiatric: positive for depression. positive for anxiety. No mood swings. Endocrine: No abnormal blood sugars. No weight change. PAST MEDICAL HISTORY: Chronic obstructive pulmonary disease. Small cell lung cancer with metastatic disease to the left cerebellar peduncle Allergic rhinitis. Mixed hyperlipidemia. Chronic tobacco use and dependence. Coronary artery disease of [place] artery without unstable angina. Carotid artery disease. PAD. Mitral regurgitation. Vitamin D deficiency. Anxiety. PAST SURGICAL HISTORY: Tonsillectomy and adenoidectomy. Total hysterectomy. Colonoscopy 2009. Left lumpectomy benign 1999 Bronchoscopy with transbronchial biopsy February 2023 SOCIAL HISTORY: Patient smokes about a pack every day since the age of 14, she denies any alcohol ingestion, she denies any drug use or abuse, she lives by herself. FAMILY HISTORY: Father at age 43 from [place], mother at age 78 after triple bypass surgery and also had history of dementia, patient had 3 brothers 1 at age of 49 from [place], 1 from COPD and his other 1 from bladder cancer. Patient has 4 sisters 1 with COPD and the other 1 with CAD post PCI. Patient has 1 daughter with back problems. PHYSICAL EXAMINATION: General: 63-year-old female sitting up in bed appears to be in minimal respiratory distress. HEENT: Head is atraumatic, normocephalic, pupils were equal round reactive to light and recommendation, extraocular muscle movement were intact, sclera nonicteric, conjunctivae were pale, mucous membranes of the mouth are somewhat dry. Neck: Supple, no JVP, normal carotid upstroke bilaterally, no lymphadenopathy. Chest: Decreased breath sounds at the bases, few rhonchi, minimal expiratory wheezes, no chest wall tenderness, no intercostal retractions. Heart: First heart sound is normal, second heart sounds normal, tachycardic, there is systolic ejection murmur 2/6 located in the left sternal border. Abdomen: Soft, nontender, nondistended, positive bowel sounds. Extremities: There is no edema no calf tenderness DP +2 bilaterally. Neurologic examination: Patient is awake alert and oriented x3, cranial nerves II-12 appear grossly intact, muscle power were 5 out of 5 in upper extremities and 5 out of 5 in bilateral lower extremities, deep tendon reflexes normal bilaterally. ASSESSMENT AND PLAN: 1. Acute hypoxemic respiratory failure due to acute exacerbation of chronic obstructive pulmonary disease with acute bronchitis. Patient was started on Solu-Medrol 60 mg IV push every 6 hours, DuoNeb 3 mL nebulization 4 times every day, Pulmicort 1 mg nebulization twice every day, pulmonary consultation appreciated, patient also was started on doxycycline 100 mg orally twice every day, procalcitonin level was ordered still pending the time of dictation, oxygen support, patient oxygen saturation was around 80% on room air, follow-up with the patient very closely, await further recommendation. 2. Right-sided chest pain likely pleuritic pain. Continue Solu-Medrol 60 mg IV push every 6 hours, continue Pulmicort, continue DuoNeb, cardiology consultation appreciated, echocardiogram was done still pending the time of dictation. Patient was started also on metoprolol 25 mg orally twice every day monitor the patient's symptoms very closely. 3. History of small cell lung cancer with metastatic disease to the brain status post recent radiation therapy to the brain with positive response. Finish chemoradiation therapy has been under the care of Dr. Bee. Oncology consultation appreciated. 4. Allergic rhinitis. Continue patient on montelukast 10 mg once every day, loratadine 10 mg once every day, monitor the patient's symptoms very closely. 5. Mixed hyperlipidemia. Continue atorvastatin 20 mg once every day, monitor lipid panel, keep LDL 55-70. 6. Coronary artery disease of [place] artery without and stable angina. Monitor the patient symptoms very closely, continue patient on aspirin 81 g once every day, metoprolol 25 mg orally twice every day, atorvastatin 20 mg once every day, echocardiogram was ordered still pending at the time of dictation. Cardiology consultation appreciated. 7. Carotid artery disease. Ultrasound of the carotids up-to-date that showed mild IMT. Continue baby aspirin 81 mg once every day, atorvastatin 20 mg once every day . 8. PAD. Continue aspirin and atorvastatin for secondary prevention. 9. Anxiety disorder. Continue bupropion XL 150 mg orally once every day. 10. DVT prophylaxis. Lovenox 40 mg subcutaneous every 24 hours. 11. GI prophylaxis. Protonix 40 mg once every day. 12. Observation. 13. Full code Past Medical History Past Medical History: COPD, Hyperlipidemia Additional Past Medical History / Comment(s): KIDNEY STONES, EMPHYSEMA, RECENT 3 MASSES FOUND IN LT LUNG History of Any Multi-Drug Resistant Organisms: None Reported Past Surgical History: Breast Surgery, Hysterectomy, Tonsillectomy, Tubal Ligation Additional Past Surgical History / Comment(s): LAPAROSCOPIC EXAM, BREAST BIOPSY- LEFT and RIGHT-BENIGN, COLONOSCOPY Past Anesthesia/Blood Transfusion Reactions: No Reported Reaction Past Psychological History: Anxiety Smoking Status: Current every day smoker - Past Family History Brother(s) Family Medical History: Cancer, Deep Vein Thrombosis (DVT) Additional Family Medical History / Comment(s): bladder ca. 2 BROTHERS WITH CANCER Medications and Allergies Home Medications Medication Instructions Recorded Confirmed Type Montelukast [Singulair] 10 mg PO HS 02/29/20 01/19/24 History Atorvastatin [Lipitor] 20 mg PO HS 05/21/21 01/19/24 History Levocetirizine Dihydrochloride 5 mg PO HS 05/21/21 01/19/24 History Albuterol Inhaler [Ventolin Hfa 2 puff INHALATION RT-Q4H PRN 11/01/22 01/19/24 History Inhaler] ALPRAZolam [Xanax] 0.5 mg PO DAILY PRN 01/19/24 01/19/24 History Albuterol Nebulized [Ventolin 2.5 mg INHALATION RT-TID PRN 01/19/24 01/19/24 History Nebulized] HYDROcodone/APAP 5-325MG [[place] 1 tab PO QID PRN 01/19/24 01/19/24 History 5-325] Ondansetron Odt [Zofran Odt] 4 mg PO W/SUPPER 01/19/24 01/19/24 History Umeclidinium Brm/Vilanterol Tr 1 puff INHALATION RT-DAILY 01/19/24 01/19/24 Hist ory [Anoro Ellipta 62.5-25 Mcg INH] Allergies Allergy/AdvReac Type Severity Reaction Status Date / Time ciprofloxacin [From Cipro] Allergy Rash/Hives, Verified 01/19/24 16:50 SWELLING erythromycin base Allergy Rash/Hives, Verified 01/19/24 16:50 SWELLING moxifloxacin [From Avelox] Allergy Rash/Hives, Verified 01/19/24 16:50 SWELLING nitrofurantoin Allergy Rash/Hives, Verified 01/19/24 16:50 [From Macrodantin] SWELLING Penicillins Allergy Rash/Hives, Verified 01/19/24 16:50 SWELLING Quinolones Allergy Rash/Hives, Verified 01/19/24 16:50 SWELLING Sulfa (Sulfonamide Allergy Rash/Hives, Verified 01/19/24 16:50 Antibiotics) SWELLING sulfamethoxazole Allergy Rash/Hives, Verified 01/19/24 16:50 [From Bactrim] SWELLING trimethoprim [From Bactrim] Allergy Rash/Hives, Verified 01/19/24 16:50 SWELLING Physical Exam Vitals: Vital Signs Temp Pulse Resp BP Pulse Ox 01/20/24 18:23 101 H 01/20/24 18:14 100 01/20/24 17:16 110 H 29 H 110/71 96 01/20/24 15:38 101 H 01/20/24 15:33 104 H 01/20/24 11:32 96 01/20/24 11:24 92 01/20/24 09:44 106 H 16 124/80 94 L 01/20/24 08:40 108 H 01/20/24 08:29 106 H 01/20/24 08:24 105 H 16 127/87 96 01/20/24 07:39 98.3 F 112 H 14 118/78 88 L 01/20/24 06:34 101 H 18 104/65 97 01/20/24 05:31 99 18 106/63 96 01/20/24 03:45 103 H 18 110/64 94 L 01/20/24 01:39 93 16 92/51 96 01/19/24 21:26 108 H 18 140/96 93 L Intake and Output 01/20/24 01/20/24 01/20/24 06:59 14:59 22:59 Other: Weight 42.184 kg Results CBC & Chem 7: 01/20/24 05:58 01/20/24 05:58 Labs: Abnormal Lab Results - Last 24 Hours (Table) 01/20/24 01/20/24 Range/Units 05:58 05:58 RBC 3.76 L (4.10-5.20) X 10*6/uL Hgb 11.6 L (12.0-15.0) g/dL Hct 36.1 L (37.2-46.3) % Immature Gran # 0.29 H (0.00-0.04) X 10*3/uL Lymphocytes # 0.76 L (0.90-5.00) X 10*3/uL Eosinophils # 0 L (0.04-0.35) X 10*3/uL Creatinine 0.5 L (0.6-1.5) mg/dL BUN/Creatinine Ratio 27.20 H (12.00-20.00) Ratio Glucose 168 H (70-110) mg/dL Total Bilirubin <0.2 L (0.3-1.2) mg/dL Total Protein 5.4 L (6.2-8.2) g/dL Albumin 3.0 L (3.8-4.9) g/dL Albumin/Globulin Ratio 1.25 L (1.60-3.17) Ratio
[2024-01-21 02:57] VITALS: RESP 18; TEMP 97.8
--- NOTE | 2024-01-21 07:40 | CA ---
Transthoracic Echo Report Name: Janet Rodriguez Age: 63 Gender: F : 1960 Exam Date: 01/20/2024 13:02 Exam Location: [facility] Ht (in): 64 Wt (lb): 93 Ordering Physician: Evelin Hernandez Attending/Referring Phys: Purchasing Department Clerk Lisa Storm RDCS Procedure CPT: Indications: Chest Pain Cardiac Hx: Technical Quality: Fair Contrast 1: Total Dose (mL): Contrast 2: Total Dose (mL): MEASUREMENTS (Male / Female) Normal Values 2D ECHO LV Diastolic Diameter PLAX 3.9 cm 4.2 - 5.9 / 3.9 - 5.3 cm LV Systolic Diameter PLAX 2.8 cm IVS Diastolic Thickness 0.7 cm 0.6 - 1.0 / 0.6 - 0.9 cm LVPW Diastolic Thickness 1.1 cm 0.6 - 1.0 / 0.6 - 0.9 cm LV Relative Wall Thickness 0.5 RV Internal Dim ED PLAX 1.7 cm LA Systolic Diameter LX 2.5 cm 3.0 - 4.0 / 2.7 - 3.8 cm LV Diastolic Volume MOD BP 43.4 cm??? 67 - 155 / 56 - 104 cm??? LV Systolic Volume MOD BP 18.0 cm??? 22 - 58 / 19 - 49 cm??? LV Ejection Fraction MOD BP 58.5 % >= 55 % LV Cardiac Index MOD BP 1767.9 cm???/min???m??? LV Diastolic Volume MOD 4C 31.2 cm??? LV Systolic Volume MOD 4C 13.6 cm??? LV Ejection Fraction MOD 4C 56.5 % LV Cardiac Index MOD 4C 1227.5 cm???/min???m??? LV Diastolic Length 4C 5.9 cm LV Systolic Length 4C 4.5 cm LV Diastolic Volume MOD 2C 53.2 cm??? LV Systolic Volume MOD 2C 18.2 cm??? LV Ejection Fraction MOD 2C 65.8 % LV Cardiac Index MOD 2C 2436.8 cm???/min???m??? LV Diastolic Length 2C 6.8 cm LV Systolic Length 2C 6.1 cm M-MODE Aortic Root Diameter MM 2.5 cm LA Systolic Diameter MM 2.5 cm LA Ao Ratio MM 1.0 AV Cusp Separation MM 1.7 cm DOPPLER Mitral E Point Velocity 72.9 cm/s Mitral A Point Velocity 92.1 cm/s Mitral E to A Ratio 0.8 MV Deceleration Time 247.7 ms MV E' Velocity 7.0 cm/s Mitral E to MV E' Ratio 10.4 TR Peak Velocity 236.0 cm/s TR Peak Gradient 22.3 mmHg Right Ventricular Systolic Press 37.3 mmHg FINDINGS Left Ventricle Left ventricular ejection fraction is estimated at 55-60 %. Mildly increased posterior wall thickness. Normal left ventricular systolic function with no obvious regional wall motion abnormalities. Left ventricular cavity size normal. Right Ventricle Normal right ventricular size and function. Mild pulmonary hypertension. Right Atrium Normal right atrial size. Lipomatous hypertrophy Left Atrium Normal left atrial size. Mitral Valve Structurally normal mitral valve. Trace mitral regurgitation. No mitral stenosis. Aortic Valve Trileaflet aortic valve. Tricuspid Valve Structurally normal tricuspid valve. Mild tricuspid regurgitation. No tricuspid stenosis. Pulmonic Valve Structurally normal pulmonic valve. Trace pulmonic regurgitation. No pulmonic stenosis. Pericardium Small pericardial effusion. Pericardial effusion located anteriorly. Aorta Normal size aortic root and proximal ascending aorta. CONCLUSIONS Normal LV size and systolic function. No significant abnormality in the Doppler exam. Small anterior pericardial effusion. No significant pulmonary hypertension Previewed by: Dr. Urbano Luciano MD (Electronically Signed) Final Date: 21 January 2024 07:39
[2024-01-21 08:46] VITALS: BP 102/64
[2024-01-21] MEDS: ENOXAPARIN 40 MG/0.4 ML SYRINGE SQ SCH (08:46)
[2024-01-21 09:19] LABS: Basophils # (A) 0.05 X 10*3/uL (0.00-0.10); Basophils % (A) 0.3 %; Eosinophils # (A) 0 X 10*3/uL (0.04-0.35); Eosinophils % (A) 0 %; HCT 33.6 % (37.2-46.3); HGB 10.9 g/dL (12.0-15.0); Lymphocytes # (A) 0.71 X 10*3/uL (0.90-5.00); Lymphocytes % (A) 4.4 %; MCH 31.2 pg (27.0-32.0); MCHC 32.4 g/dL (32.0-37.0); MCV 96.3 FL (80.0-97.0); Mean Platelet Volume 9.8 FL (9.5-12.2); Monocytes # (A) 0.42 X 10*3/uL (0.20-1.00); Monocytes % (A) 2.6 %; NRBC Per 100 WBC 0 X 10*3/uL (0.00-0.01); Neutrophils # (A) 14.87 X 10*3/uL (1.80-7.70); Neutrophils % (A) 91.1 %; Platelet Count 318 X 10*3/uL (140-440); RBC 3.49 X 10*6/uL (4.10-5.20); RDW 13.1 % (11.5-14.5); WBC 16.31 X 10*3/uL (4.50-10.00)
[2024-01-21 09:44] LABS: ALT 26 U/L (8-44); AST 33 U/L (13-35); Albumin 3.1 g/dL (3.8-4.9); Albumin/Globulin Ratio 1.19 Ratio (1.60-3.17); Alkaline Phosphatase 94 U/L (41-126); Blood Urea Nitrogen 20.3 mg/dL (9.0-27.0); Calcium 9.4 mg/dL (8.7-10.3); Carbon Dioxide 29.4 mmol/L (21.6-31.8); Chloride 100 mmol/L (96-109); Globulin 2.6 g/dL (1.6-3.3); Glucose 160 mg/dL (70-110); Potassium 3.9 mmol/L (3.5-5.5); Sodium 140 mmol/L (135-145); Total Bilirubin <0.2 mg/dL (0.3-1.2); Total Protein 5.7 g/dL (6.2-8.2)
--- NOTE | 2024-01-21 10:06 | P.PN ---
Subjective Progress Note Date: 01/21/24 Consult reason: chest pain History of present illness: This is a 63-year-old female with past medical history of recent diagnosis of small cell lung cancer with metastasis, severe COPD, hyperlipidemia, chronic tobacco use and dependence. We have been asked to evaluate the patient for chest pain. Regarding lung cancer, patient states that she was diagnosed in January 2023 and started chemotherapy and radiation therapy on March 26. Patient was recently found to have a new mass in the left cerebellar hemisphere on brain MRI status post radiation to the brain with improvement. Patient presented to the emergency center due to right sided chest pain and shortness of breath. Pain was of sharp nature and also went to her back. Her pulse ox was apparently low at home. Blood pressure 118/78, heart rate 112, pulse ox 97% on 2 L. Patient also has a pulse ox 88% on room air. -EKG: Sinus rhythm with no acute ST-T wave changes with ventricular rate 129 bpm. -Chest x-ray: No acute process. COPD changes. CTA of the chest ruled out PE. Tree-in-bud nodularity in the peripheral lungs with small area of consolidation in the left lower lobe. Right hilar lymphadenopathy. Centrilobular emphysema. -Laboratory studies: WBC 14.4, hemoglobin 12.3, D-dimer 0.59, sodium 136, potassium 2.9, BUN 13, creatinine 0.57. Troponin negative x 2. Influenza A, influenza B, RSV, COVID-19 not detected. -Home cardiac medications: Atorvastatin 20 mg at bedtime. -Echocardiogram performed 09/30/2022: Normal LV systolic function. Prominent posterior pericardial stripe. 01/21/2024 Patient seen and examined. Patient denies having chest pain today. We started her on Lopressor yesterday and heart rates are running between 70 and 104, blood pressure 102/64, pulse ox 90% on room air. Repeat blood work reveals WBC 16, hemoglobin 10.9, sodium 140, potassium 3.9, creatinine 0.7. Echocardiogram reveals normal LV size and systolic function. No significant abnormality in the Doppler exam. Small anterior pericardial effusion. No significant pulmonary hypertension. Results of the echocardiogram and other testing reviewed with the patient. Physical examination: Gen: This is a thin cachectic appearing 63-year-old female in no acute respiratory distress VS: reviewed HEENT: Head is atraumatic, normocephalic. Pupils equal, round. Sclerae is anicteric. NECK: Supple. No JVD. LUNGS: Diminished breath sounds with. No intercostal retractions. HEART: Regular rate and rhythm. No murmur. ABDOMEN: Soft No tenderness. EXTREMITIES: No pedal edema. No calf tenderness. NEUROLOGICAL: Patient is awake, alert and oriented x3. Assessment: Acute hypoxic respiratory failure secondary to COPD exacerbation Small cell lung cancer followed by Dr. Santos status post chemotherapy and radiation therapy Severe COPD Chest pain, noncardiac, acute coronary syndrome ruled out Hyperlipidemia Chronic tobacco use and dependence Plan: Continue atorvastatin Continue Lopressor 25 mg twice daily and hold for systolic blood pressure less than 100 No further cardiac workup is planned at this time. Cardiology will sign off this case and follow on an as-needed basis. Please reconsult for any new concerns. Patient may follow-up in the office in one to 2 weeks. Nurse practitioner note has been reviewed, I agree with documented findings and plan of care. Patient was seen and examined. Objective - Vital Signs Vital signs: Vital Signs Temp 97.8 F 01/21/24 02:00 Pulse 70 01/21/24 08:41 Resp 18 01/21/24 07:00 BP 102/64 01/21/24 07:00 Pulse Ox 90 L 01/21/24 07:00 FiO2 Intake & Output 01/20/24 01/21/24 01/21/24 18:59 06:59 18:59 Intake Total 480 720 Balance 480 720 Weight 42.184 kg Intake: Oral 480 720 Other: # Voids 1 - Labs CBC & Chem 7: 01/21/24 05:09 01/21/24 05:09 Labs: Abnormal Lab Results - Last 24 Hours (Table) 01/20/24 Range/Units 05:58 Immature Gran # 0.29 H (0.00-0.04) X 10*3/uL Lymphocytes # 0.76 L (0.90-5.00) X 10*3/uL Eosinophils # 0 L (0.04-0.35) X 10*3/uL
[2024-01-21 12:27] VITALS: PULSE 88
--- NOTE | 2024-01-21 13:26 | P.DS ---
Providers Date of admission: 01/19/24 20:19 Expected date of discharge: 01/21/24 Attending physician: Juan Simon Consults: 01/19/24 20:17 Consult Physician Routine Consulting Provider: Victorino Christianson Consult Reason/Comments: COPD, acute hypoxia Do you want consulting provider notified?: Yes, Notify in am Consult Physician Routine Consulting Provider: Lavelle Villarreal Consult Reason/Comments: CP relieved with nitro, SOB Do you want consulting provider notified?: Yes, Notify in am 01/19/24 20:19 Consult Physician Routine Consulting Provider: Alfredo Bee Consult Reason/Comments: lung cancer Do you want consulting provider notified?: Yes, Notify in am 01/20/24 12:29 Consult Physician Routine Consulting Provider: Garrett Del Real Consult Reason/Comments: hx RT, r/o radiation pneumonitis Do you want consulting provider notified?: Yes Primary care physician: Juan Simon Hospital Course: HISTORY OF PRESENT ILLNESS: This is a 63-year-old female with a previous medical history significant for chronic tobacco use and dependence, chronic obstructive pulmonary disease, diagnosis of small cell lung cancer in February 2023 after she has had a surveillance low-dose CT scan of the chest due to her chronic smoking status for about a pack a day since the age of 14, that showed evidence of lung mass that was pursued with a PET scan followed by biopsy that documented small cell lung cancer patient was treated with chemoradiation therapy, and has been under the care of Dr. Bee, she was recently found to have a metastatic lesion to the left inferior cerebellar peduncle was around 14 mm now down to 5 mm after she received radiation therapy, has been following with Dr. Rose as well along with Dr. Bee, patient was in her usual state of health till about y when she was sitting down at home working on crocheting and all of a sudden developed to have a significant pain in the right side of the chest associated with increased cough as well as shortness of breath, she ended up coming to the emergency department at [facility] for evaluation, initially had a CT scan of the chest because of elevated D-dimer that was negative for pulmonary embolism, did show evidence of tree-in-bud nodularity in the periphery of the lung with minimal consolidation in the left lower lobe associated with Right hilar lymphadenopathy and central lobar emphysema, patient was admitted to the hospital she was started on Solu-Medrol 60 mg every 6 hours, nebulized treatment in the form of DuoNeb 3 mL nebulization 4 times every day Pulmicort 1 mg nebulization twice every day, she was also seen in consultation by pulm medicine as well as by cardiology along with oncology, patient appears to be quite tachycardic, her heart rate is around 120 sinus tachycardia, her cardiac enzymes are negative, her EKG did not show significant changes, echocardiogram was ordered by cardiology, awaiting the result of that, she was also started on doxycycline 100 mg orally twice every day, follow-up with the patient very closely. 01/20: Patient sitting up in bed in no apparent distress, she denies any chest pain at this time, she has no shortness of breath, she has been a lot better since yesterday, she underwent echocardiogram that did not show evidence of trace mitral regurgitation and tricuspid regurgitation normal ejection fraction, small pericardial effusion, she was cleared by cardiology and by pulm medicine to be discharged home therefore medication will be discontinued the patient will be discharged home and follow-up with me as an outpatient next week. Discharge diagnoses: 1. Acute hypoxemic respiratory failure due to acute exacerbation of chronic obstructive pulmonary disease with acute bronchitis. 2. Right-sided chest pain likely pleuritic pain. 3. History of small cell lung cancer with metastatic disease to the brain status post recent radiation therapy to the brain with positive response. 4. Allergic rhinitis. 5. Mixed hyperlipidemia. 6. Coronary artery disease of [place] artery without and stable angina. 7. Carotid artery disease. 8. PAD. 9. Anxiety disorder. 10. Pericardial effusion 11. Chronic tobacco use and dependence. Patient Condition at Discharge: Serious Plan - Discharge Summary Discharge Rx Participant: Yes New Discharge Prescriptions: No Action Montelukast [Singulair] 10 mg PO HS Levocetirizine Dihydrochloride 5 mg PO HS Atorvastatin [Lipitor] 20 mg PO HS HYDROcodone/APAP 5-325MG [[place]bon 5-325] 1 tab PO QID PRN PRN Reason: Pain Ondansetron Odt [Zofran Odt] 4 mg PO W/SUPPER Albuterol Nebulized [Ventolin Nebulized] 2.5 mg INHALATION RT-TID PRN PRN Reason: Shortness Of Breath Or Wheezing ALPRAZolam [Xanax] 0.5 mg PO DAILY PRN PRN Reason: Anxiety Albuterol Inhaler [Ventolin Hfa Inhaler] 2 puff INHALATION RT-Q4H PRN PRN Reason: Shortness Of Breath Or Wheezing Umeclidinium Brm/Vilanterol Tr [Anoro Ellipta 62.5-25 Mcg INH] 1 puff INHALATION RT-DAILY Discharge Medication List Montelukast [Singulair] 10 mg PO HS 02/29/20 [History] Atorvastatin [Lipitor] 20 mg PO HS 05/21/21 [History] Levocetirizine Dihydrochloride 5 mg PO HS 05/21/21 [History] Albuterol Inhaler [Ventolin Hfa Inhaler] 2 puff INHALATION RT-Q4H PRN 11/01/22 [History] ALPRAZolam [Xanax] 0.5 mg PO DAILY PRN 01/19/24 [History] Albuterol Nebulized [Ventolin Nebulized] 2.5 mg INHALATION RT-TID PRN 01/19/24 [History] HYDROcodone/APAP 5-325MG [[place]ourbon 5-325] 1 tab PO QID PRN 01/19/24 [History] Ondansetron Odt [Zofran Odt] 4 mg PO W/SUPPER 01/19/24 [History] Umeclidinium Brm/Vilanterol Tr [Anoro Ellipta 62.5-25 Mcg INH] 1 puff INHALATION RT-DAILY 01/19/24 [History] Follow up Appointment(s)/Referral(s): Juan Simon MD [Primary Care Provider] - 1-2 days
--- NOTE | 2024-01-21 14:17 | P.PN ---
Subjective Progress Note Date: 01/21/24 Patient is a 63-year-old female with past medical history significant for metastatic lung cancer, very severe COPD, hyperlipidemia, and chronic ongoing tobacco dependence. Patient does follow with Dr. Torres in the pulmonary office. She has history of small cell lung cancer, originally diagnosed on 02/20/2023 by robotic assisted bronchoscopy with mediastinal involvement and metastasis to the brain. At that time, Dr. Torres biopsied a 2.5 cm left lower lung mass. There was also some mediastinal lymphadenopathy involving the left hilum and subcarinal areas. Pathology of the lesion was positive for small cell lung cancer. There was also positive station 7 and 10L lymph nodes. She is status post chemo and radiation. Initially had good response to therapy. More recently, patient was found to have a 1.1 x 1.1 cm new mass within the left cerebellar hemisphere found on brain MRI. Follow-up brain MRI showing positive response to therapy with decrease in size of left inferior cerebellar peduncle mass measuring 5 mm previously 14 mm. No new masses found. Her oncologist is Dr. Bee. States that she is reportedly not currently on any chemotherapy. She has had 5 rounds of radiation to the brain. Yesterday afternoon, patient presented the emergency department with a chief c omplaint of substernal sharp chest pain. She states that this occurred while sewing. Lasting approximately 15 to 20 minutes, described as severe, nonradiating. Accompanied with nausea and shortness of breath. Patient's daughter then called EMS. Initial evaluation in the ED included a Chest CT angio which did not show any filling defects consistent with pulmonary emboli. Tree-in-bud nodularity seen in the peripheral lungs with small area of consolidation seen in the left lower lobe. There is also right hilar lymphadenopathy. Disease recurrence is difficult to exclude. Short-term follow-up was recommended. EKG: Sinus tachycardia, rate 129 bpm, no obvious acute ischemic changes. Troponins less than 0.012 x 2. Denies previous episodes of chest pain, heart palpitations, lower extremity swelling, orthopnea. Remaining labs include a WBC count 14.4, hemoglobin 12.3, hematocrit 37.8, pl atelets 356. CMP: Sodium 136, potassium 2.9, chloride 102, serum bicarb 29, BUN 13, creatinine 0.57, glucose 102. Magnesium 1.8. LFTs unremarkable. Patient is currently being evaluated emergency department. No current chest pain. She is resting in bed on 2 L/min nasal cannula. SpO2 is 92%. Not in any apparent distress. Denies home O2. She does states that she has been more short of breath over the last few weeks. She does have a chronic cough. Denies any change in sputum consistency or color. Denies hemoptysis. Denies fevers or chills. States that her daughter was sick earlier in the week with a cold. She does continue to smoke cigarettes, up to almost 1/2 pack/day. Current vitals: Afebrile, heart rate 103 bpm, blood pressure 110/64 mmHg, SpO2 94% on 2 L/min nasal cannula. The patient is seen today January 21, 2024 in follow-up on the regular medical floor. She is currently sitting up in bed having breakfast. Denies any shortness of breath, cough or congestion. Denies any further chest discomfort. She is maintaining good O2 saturations in the 90s on room air. White count 16.3. Hemoglobin 10.9. Platelets 318. Sodium 140. Potassium 3.9. Bicarb 29. BUN 20. Creatinine 0.7. Glucose 160. Procalcitonin was negative at 0.09. Elations, Symbicort, Singulair. NicoDerm patch in place. Lovenox for DVT prophylaxis. Objective - Vital Signs Vital signs: Vital Signs Temp 97.8 F 01/21/24 02:00 Pulse 88 01/21/24 12:26 Resp 18 01/21/24 07:00 BP 102/64 01/21/24 07:00 Pulse Ox 90 L 01/21/24 07:00 FiO2 Intake & Output 01/20/24 01/21/24 01/21/24 18:59 06:59 18:59 Intake Total 480 720 118 Balance 480 720 118 Weight 42.184 kg Intake: Oral 480 720 118 Other: # Voids 1 - Exam GENERAL EXAM: Alert, 63-year-old female, sitting up in bed, on room air, comfortable in no apparent distress. HEAD: Normocephalic and atraumatic EYES: Normal reaction of pupils, equal size. NOSE: Clear with pink turbinates. THROAT: No erythema or exudates. NECK: No masses, no JVD. CHEST: No chest wall deformity. LUNGS: Equal air entry with faint expiratory wheezing on forced expiration. No rhonchi or focal dullness. CVS: S1 and S2 normal with no audible murmur, regular rhythm. No extra heart sounds ABDOMEN: No hepatosplenomegaly, active bowel sounds, no guarding or rigidity. SPINE: No scoliosis or deformity SKIN: No rashes CENTRAL NERVOUS SYSTEM: No focal deficits, tone is normal in all 4 extremities. EXTREMITIES: There is no peripheral edema, clubbing, or cyanosis. Peripheral pulses are intact. - Labs CBC & Chem 7: 01/21/24 05:09 01/21/24 05:09 Labs: Abnormal Lab Results - Last 24 Hours (Table) 01/21/24 01/21/24 Range/Units 05:09 05:09 WBC 16.31 H (4.50-10.00) X 10*3/uL RBC 3.49 L (4.10-5.20) X 10*6/uL Hgb 10.9 L (12.0-15.0) g/dL Hct 33.6 L (37.2-46.3) % Immature Gran # 0.26 H (0.00-0.04) X 10*3/uL Neutrophils # 14.87 H (1.80-7.70) X 10*3/uL Lymphocytes # 0.71 L (0.90-5.00) X 10*3/uL Eosinophils # 0 L (0.04-0.35) X 10*3/uL BUN/Creatinine Ratio 29.00 H (12.00-20.00) Ratio Glucose 160 H (70-110) mg/dL Total Bilirubin <0.2 L (0.3-1.2) mg/dL Total Protein 5.7 L (6.2-8.2) g/dL Albumin 3.1 L (3.8-4.9) g/dL Albumin/Globulin Ratio 1.19 L (1.60-3.17) Ratio Assessment and Plan Assessment: Atypical chest pain, acute coronary syndrome ruled out Acute hypoxemic respiratory failure, likely secondary to acute exacerbation of COPD, chest CT angio which did not show any filling defects consistent with pulmonary emboli. Tree-in-bud nodularity seen in the peripheral lungs with small nodular area of consolidation seen in the left lower lobe. There is also right hilar lymphadenopathy. Disease recurrence is difficult to exclude. Short-term follow-up is recommended. Small cell lung carcinoma, originally diagnosed back on 02/20/2023 via robotic assisted bronchoscopy with mediastinal involvement and metastasis to the brain. At that time, Dr. Torres biopsied a 2.5 cm left lower lung mass. There was also some mediastinal lymphadenopathy involving the left hilum and subcarinal areas. Pathology of the lesion was positive for small cell lung cancer. There was also positive station 7 and 10L lymph nodes. She is status post chemo and radiation. Initially, had good response to therapy 1.1 x 1.1 cm left cerebellar hemisphere found on brain MRI dated back October,. Follow-up brain MRI showing positive response to therapy with decrease in size of left inferior cerebellar peduncle mass measuring 5 mm previously 14 mm. No new masses found Acute leukocytosis Hypokalemia, replace per protocol Chronic ongoing tobacco dependence, patient continues to smoke almost 1/2 pack/day Very severe chronic obstructive pulmonary disease, that FEV1 26% of predicted normally maintained on Anoro and as needed albuterol inhaler History of hyperlipidemia Plan: The patient was seen and evaluated Labs and medications reviewed Stable and on room air Cleared for discharge Procalcitonin negative Continue her home pulmonary medications Educated regarding smoking cessation NicoDerm patch remains in place This patient was seen independently by the pulmonary nurse practitioner addressing pulmonary issues I have personally seen and examined the patient, performed the documentation and the assessment and plan as written. Number of minutes spent on the visit: 25 Dictation was produced using [employer] dictation software. Please excuse any grammatical, word or spelling errors.
== END 2024-01-21 14:00 | disposition home or self-care (01) ==
LOC: EC 15:01 → 6NMEDSUR 20:19
PROVIDERS: ADMIT Internal Medicine; ATTEND Internal Medicine
DX: J44.0 Chronic obstructive pulmonary disease with (acute) lower respiratory infection (principal); J20.9 Acute bronchitis, unspecified; J96.01 Acute respiratory failure with hypoxia; J44.1 Chronic obstructive pulmonary disease with (acute) exacerbation; J43.2 Centrilobular emphysema; C34.90 Malignant neoplasm of unspecified part of unspecified bronchus or lung; E87.6 Hypokalemia; C79.31 Secondary malignant neoplasm of brain; R79.89 Other specified abnormal findings of blood chemistry; I25.10 Atherosclerotic heart disease of native coronary artery without angina pectoris; I34.0 Nonrheumatic mitral (valve) insufficiency; I73.9 Peripheral vascular disease, unspecified; I31.39 Other pericardial effusion (noninflammatory); E78.2 Mixed hyperlipidemia; I77.9 Disorder of arteries and arterioles, unspecified; F17.210 Nicotine dependence, cigarettes, uncomplicated; E55.9 Vitamin D deficiency, unspecified; R59.0 Localized enlarged lymph nodes; F41.9 Anxiety disorder, unspecified; J30.9 Allergic rhinitis, unspecified; Z79.899 Other long term (current) drug therapy; Z88.0 Allergy status to penicillin; Z88.1 Allergy status to other antibiotic agents; Z88.2 Allergy status to sulfonamides; Z92.3 Personal history of irradiation; Z92.21 Personal history of antineoplastic chemotherapy; Z71.6 Tobacco abuse counseling; Z11.52 Encounter for screening for COVID-19; Z11.59 Encounter for screening for other viral diseases
CPT/HCPCS: 96376 ×3; 96372; 96361 ×2; 96374; 96375; 99285; 36415; 94640 ×4; 93005; 93306; 85379; 80053 ×3; 83690; 83735; 84484; 85025 ×3; 85610; 85730; 84145; 87636; 71046; 71275; G0378 ×3; S4990 ×2; J1650; Q9967; J2919 ×3; J2470 ×2

== ENCOUNTER → 2024-03-01 | Outpatient (CLI) | payer OTHER ==
--- NOTE | 2024-03-01 15:18 | CT ---
EXAMINATION TYPE: CT ChestAbdPelvis w con DATE OF EXAM: 03/01/2024 COMPARISON: Prior CT November 05, 2023 and older studies. HISTORY: Lung CA CT DLP: 434.2 mGycm. Automated Exposure Control for Dose Reduction was Utilized. CONTRAST: CT scan of the thorax, abdomen and pelvis is performed with IV Contrast, patient injected with 100 mL of Isovue 300. FINDINGS: LUNGS/ PLEURA: Moderate to advanced underlying emphysematous changes are redemonstrated. Mild Biapica l pleural-parenchymal scarring again seen. Small focus of ground glass nodularity in the periphery of the posterior left base axial image 37 for reference. There is new reticulation and tiny nodularity anteriorly in the left lingula axial image 37 for reference. No pleural effusion. AIRWAY: Patent and unremarkable. HEART: Size within normal limits.Tiny pericardial effusion is stable. Persistent 3 vessel coronary ar terial calcifications. MEDIASTINUM: No pathologically enlarged lymph nodes greater than 1 cm short axis. Stable subcarinal l ymph node measuring 12 x 7 mm axial image 33. Severe thickening of the esophagus at and below level o f kirti is redemonstrated. VASCULATURE: No aortic aneurysm. Aberrant right subclavian artery taking a retropharyngeal course re demonstrated. MUSCULOSKELETAL: No acute osseous abnormalities. No aggressive osseous lesion. SOFT TISSUES/LYMPH NODES: Unremarkable. LOWER NECK: Stable hypodense 8 mm nodule within the left thyroid lobe axial image 8. ABDOMEN: ABDOMEN LIVER: Unremarkable GALLBLADDER AND BILE DUCTS: Unremarkable. PANCREAS: Unremarkable. SPLEEN: Unremarkable. ADRENAL GLANDS: Unremarkable. KIDNEYS AND URETERS: No evidence of hydronephrosis. No left renal calculi. Stable Nonobstructive righ t inferior pole 6 mm calculus anteriorly on axial image 70. Kidneys enhance symmetrically. Contrast i s demonstrated within both collecting systems on the delayed phase. PELVIS BLADDER: Distended urinary bladder. REPRODUCTIVE: Uterus is surgically absent. ABDOMEN & PELVIS STOMACH AND BOWEL: Stomach and duodenum are unremarkable. Enteric contrast reaches the proximal sigmo id colon. Sigmoid diverticulosis. No evidence of bowel obstruction. PERITONEUM: No evidence of pneumoperitoneum or free fluid. VASCULATURE: Moderate atherosclerotic calcifications are present throughout the abdominal aorta and i ts branches. No abdominal aortic aneurysm. MUSCULOSKELETAL: Stable sclerotic focus within the left pubic body likely representing a benign bone island. LYMPH NODES: No gross evidence for lymphadenopathy. SOFT TISSUE/ABDOMINAL WALL: Unremarkable IMPRESSION: 1. There is new focal groundglass nodularity posterior left lower lobe and more regional tiny nodular ity anteriorly in the lingula. Suspect posttreatment change. Similar suspect posttreatment change in the midesophagus. Continued CT monitoring advised. No convincing evidence of active neoplastic recurr ence. [facility], , 03/01/2024 3:15 PM
== END | disposition home or self-care (01) ==
LOC: RADCTMAIN 10:41
PROVIDERS: ATTEND Internal Medicine Hematology & Oncology
DX: C34.92 Malignant neoplasm of unspecified part of left bronchus or lung (principal); R91.8 Other nonspecific abnormal finding of lung field
CPT/HCPCS: 71260; 74177; Q9967

== ENCOUNTER → 2024-03-08 | Outpatient (CLI) | payer OTHER ==
--- NOTE | 2024-03-08 14:54 | MR ---
EXAMINATION TYPE: MR brain wo/w con DATE OF EXAM: 03/08/2024 2:04 PM COMPARISON: 12/14/2023. 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 TECHNIQUE: Multi planar, multi sequence imaging was performed through the brain including: T1, T2, In version recovery, susceptibility weighted imaging and gradient echo imaging and Diffusion weighted im aging. The patient was then given intravenous contrast and multi planar, T1 fat-saturation images wer e obtained. IV Contrast: 4 mL Gadobutrol FINDINGS: Continued positive response to therapy. Area in the left cerebellum of enhancement is no longer visua lized. After administration of gadolinium, no abnormal enhancement is seen. No new lesions identified . The javier-white junctions, ventricular system, basal cisterns appear unremarkable. Diffusion-weighted imaging shows no evidence of restricted diffusion to suggest acute/subacute infarct. Intracranial ar terial flow voids are maintained. Midline structures show no abnormality. Scattered foci of high T2 s ignal intensity are seen within the periventricular white matter. The susceptibility weighted images do not reveal any evidence for micro-hemorrhage. The bone marrow signal is within normal limits. Paranasal sinuses and mastoid air cells: Left maxillary sinus retention cyst measuring up tor 19 mm. Visualized orbits: Orbital contents are intact. IMPRESSION: 1. Positive response to therapy, no masses definitively visualized in the left inferior cerebellar pe duncle. No new abnormal enhancement identified. 2. Nonspecific white matter changes, likely related to small vessel ischemic disease. [facility], , 03/08/2024 2:52 PM
== END | disposition home or self-care (01) ==
LOC: RADMRIMAIN 12:40
PROVIDERS: ATTEND Radiology Radiation Oncology
DX: C79.31 Secondary malignant neoplasm of brain (principal); C77.1 Secondary and unspecified malignant neoplasm of intrathoracic lymph nodes; C34.32 Malignant neoplasm of lower lobe, left bronchus or lung; R90.82 White matter disease, unspecified; J34.1 Cyst and mucocele of nose and nasal sinus; Z92.3 Personal history of irradiation
CPT/HCPCS: 70553; A9585

== ENCOUNTER → 2024-06-01 | Outpatient (CLI) | payer MEDICARE, OTHER ==
[2024-06-01 14:19] LABS: African American GFR (CKD) >90 (>60 ml/min/1.73 sqM); Blood Urea Nitrogen 16 mg/dL (7-17); Non-African American GFR(CKD) >90 (>60 ml/min/1.73 sqM)
--- NOTE | 2024-06-01 15:45 | CT ---
EXAMINATION TYPE: CT ChestAbdPelvis w con DATE OF EXAM: 06/01/2024 COMPARISON: 03/01/2024 CLINICAL INDICATION: Female, 64 years old with history of C34.[address] DLP: 759 mGycm Automated exposure control for dose reduction was used. CONTRAST: CT scan of the chest, abdomen and pelvis is performed with Oral Contrast and with IV Contrast, patien t injected with 100 ml mL of Isovue 300. FINDINGS: CT chest: There are marked emphysematous changes. A small groundglass opacity in the posterior left lower lobe and nodularity in the lingula has resolved in the interval. There is no suspicious lung mass or nodul e. There is no abnormal airspace/consolidative density or abnormal interstitial density. There is no pleural effusion, pleural thickening or pneumothorax. The great vessels and chest are normal there is no mediastinal, hilar or axillary adenopathy. No focal osseous lesions are seen. CT abdomen and pelvis: Gallbladder is normal without distention, pericholecystic fluid, wall thickening or gallstone. There is no biliary ductal dilatation. There is no focal mass or organomegaly involving the liver, pancreas, spleen or adrenal glands.. There is no solid renal mass or hydronephrosis. There is a stable nonobstructing 6 mm right renal maribell culus. There is no retroperitoneal adenopathy or hemorrhage in the caliber of the abdominal aorta is normal. The bowel loops are normal in caliber and there is no dilatation or obstruction. No inflammatory higginbotham ges identified in the bowel wall and mesentery. There is no free intracranial air or fluid. There is no pelvic mass or adenopathy. There is no free fluid within the pelvis. No focal osseous lesions are seen. Soft tissue the abdomen and pelvis are normal. IMPRESSION: 1. Marked emphysematous changes. 2. No evidence of recurrent neoplasm in the thorax. 3. No acute cardiopulmonary disease. 4. No metastatic disease within the abdomen or pelvis. 5. Stable 6 mm nonobstructing right renal calculus [facility], , 06/01/2024 3:42 PM
== END | disposition home or self-care (01) ==
LOC: RADCTMAIN 13:23
PROVIDERS: ATTEND Internal Medicine Hematology & Oncology
DX: C34.92 Malignant neoplasm of unspecified part of left bronchus or lung (principal); J43.8 Other emphysema; J44.9 Chronic obstructive pulmonary disease, unspecified; N20.0 Calculus of kidney
CPT/HCPCS: 82565; 84520; 71260; 74177; 36415; Q9967

== ENCOUNTER → 2024-06-04 | Outpatient (CLI) | payer MEDICARE, OTHER ==
--- NOTE | 2024-06-04 14:25 | MR ---
EXAMINATION TYPE: MR brain wo/w con DATE OF EXAM: 06/04/2024 2:13 PM COMPARISON: 12/14/2023 and 03/08/2024 CLINICAL INDICATION: Female, 64 years old with history of C79.31, 3 month f/u cancer TECHNIQUE: Multi planar multi sequence imaging of the brain. CONTRAST: Patient received 4.5 mL intravenous Gadobutrol gadolinium contrast. Pre and post contrast enhanced images are obtained. FINDINGS: The ventricles, basal cisterns and sulci overlying the cerebral convexities are mildly enlarged. There is evidence of mild periventricular white matter ischemic demyelination. Remote deep white matter insults are also noted. No acute edema is seen on diffusion weighted imaging. There is no evidence for midline shift or mass effect. Acute intracranial hemorrhage or extra-axial collection is not evident. On the study of 12/14/2023 there is a focal left inferior cerebellar peduncle lesion measuring 5 mm wh ich resolved on subsequent follow-up study dated 03/08/2024 however on today's examination there is a ring-enhancing lesion in this location measuring 1 cm. The paranasal sinuses and mastoid air cells are well-aerated. IMPRESSION: There is a 1 cm ring-enhancing lesion in the region of the left inferior cerebellar peduncle. See abo ve discussion. [facility], , 06/04/2024 2:22 PM
== END | disposition home or self-care (01) ==
LOC: RADMRIMAIN 13:23
PROVIDERS: ATTEND Radiology Radiation Oncology
DX: C79.31 Secondary malignant neoplasm of brain (principal); C77.1 Secondary and unspecified malignant neoplasm of intrathoracic lymph nodes; C34.32 Malignant neoplasm of lower lobe, left bronchus or lung; I67.82 Cerebral ischemia; J34.89 Other specified disorders of nose and nasal sinuses; G93.89 Other specified disorders of brain
CPT/HCPCS: 70553; A9585